=== PATIENT | female | born 1960 | race Caucasian/White ===

== ENCOUNTER 2023-10-06 14:11 | Outpatient (OUT) | payer OTHER, SELFPAY ==
--- NOTE | 2023-10-06 14:15 | MM_ITS ---
Patient Name: SILVIO THORNTON MR#: [id number] : 1960 Exam Date: 10/06/2023 Ordering Doctor: DR CARLOS ELI M.D. RADIOLOGY REPORT PROCEDURE: MM TOMOSYNTHESIS SCREENING BI COMPARISON: None. INDICATIONS: Screening Calculator Name NCI Breast Cancer Risk Assessment Tool 5 Year Breast Cancer Risk Not Reported. Lifetime Breast Cancer Risk Not Reported. Personal Breast Cancer No Personal Ovarian Cancer No Treatments None Family Cancers None LOCATION: [facility] BREAST COMPOSITION: Heterogeneously dense,which may obscure small masses. FINDINGS: DIAGNOSTIC CATEGORY 1--NEGATIVE. RIGHT BREAST: No significant suspicious finding. LEFT BREAST: No significant suspicious finding. RECOMMENDATIONS: ROUTINE MAMMOGRAM AND CLINICAL EVALUATION IN 12 MONTHS. PLEASE NOTE: A NORMAL MAMMOGRAM DOES NOT EXCLUDE THE POSSIBILITY OF BREAST CANCER. A CLINICALLY SUSPICIOUS PALPABLE LUMP SHOULD BE BIOPSIED. Dictated by: Roddy Villalpando M.D. on 10/25/2023 at 11:50 Approved by: Roddy Villalpando M.D. on 10/25/2023 at 11:55
== END 2023-10-06 14:12 | disposition home or self-care (01) ==
LOC: MAMMO 14:12
PROVIDERS: PCP Internal Medicine; Visit Provider Internal Medicine
DX: Z12.31 Encounter for screening mammogram for malignant neoplasm of breast (principal)
CPT/HCPCS: 77063; 77067

== ENCOUNTER 2023-11-10 12:45 | Outpatient (OUT) | payer OTHER, SELFPAY ==
--- NOTE | 2023-11-10 13:06 | XR_ITS ---
[address] [address] Patient Name: SILVIO THORNTON MRN: [id number] date: 1960 Sex: F Assigned Patient Location: [facility] Current Patient Location: Accession/Order Number: [id number] Exam Date: 11/10/2023 12:55 Report Date: 11/11/2023 07:44 At the request of: CARLOS ELI Procedure: XR DEXA axial skeleton EXAMINATION: XR DEXA axial skeleton, 11/10/2023 12:55 PM EST HISTORY: Primary Ovarian Failure E28.39 COMPARISON: None. TECHNIQUE: Dual-energy X-ray absorptiometry (DEXA) bone density study performed for the axial skeleton. HISTORY: Primary Ovarian Failure E28.39 FINDINGS: Bone mineral density of the left forearm radius measures 0.717 g/sq cm. T score 0. WHO classification: Normal. The lowest bone mineral densities the right femoral neck measuring 0.843 g/sq cm. T score -1.4. WHO classification: Osteopenia XR/XR DEXA axial skeleton IMPRESSION: Osteopenia. Moderate fracture risk Electronically authenticated by: MORALES BHATIA Date: 11/11/2023 07:44
== END 2023-11-10 12:46 | disposition home or self-care (01) ==
LOC: RAD 12:45
PROVIDERS: PCP Internal Medicine; Visit Provider Internal Medicine
DX: E28.39 Other primary ovarian failure (principal); M85.80 Other specified disorders of bone density and structure, unspecified site
CPT/HCPCS: 77080

== ENCOUNTER 2023-11-17 09:44 | Emergency (ER) | payer OTHER, SELFPAY ==
[2023-11-17] VITALS (32 sets, daily range): BP systolic 140–179; BP diastolic 59–89; PULSE 80–102; RESP 9–21; TEMP 36.3; O2SAT 94–100; BMI 29.9
--- NOTE | 2023-11-17 10:10 | ECG_ITS ---
[facility] Test Date: 2023-11-17 Pat Name: SILVIO THORNOTN Department: Room: - Gender: Female [employer] Att[employer]: : 1960 Requested By: CARLOS ELI Order Number: [id number] Reading MD: ANTHONY GOODE Measurements Intervals [place] Rate: 99 P: 54 IA: 152 QRS: 40 QRSD: 82 T: 256 QT: 368 QTc: 424 Interpretive Statements 1100 Sinus rhythm [address] depression 4364 Twave abnormality, possible inferolateral ischemia 9150 abnormal ECG No previous ECG available for comparison Electronically Signed On 11-18-2023 7:07:22 EST by ANTHONY GOODE
--- NOTE | 2023-11-17 10:11 | ED_ITS ---
HPI - General Adult General Chief complaint: Nausea/Vomiting/Diarrhea Stated complaint: HIGH BLOOD SUGAR Time Seen by Provider: 11/17/23 10:07 Source: patient Mode of arrival: walk-in Limitations: no limitations History of Present Illness HPI narrative: 63-year-old female presents for nausea and vomiting and diarrhea for four days. Her blood sugar is high at home as well. No fever. She has been able to take her medications like she normally would. No hematemesis or complaints of abdominal pain now. Related Data Home Medications Medication Instructions Recorded Confirmed amlodipine 5 mg tablet 5 mg PO DAILY 11/17/23 11/17/23 citalopram 20 mg tablet 40 mg PO DAILY 11/17/23 11/17/23 dapagliflozin propanediol 10 mg 10 mg PO DAILY 11/17/23 11/17/23 tablet (Farxiga) famotidine 20 mg tablet 20 mg PO DAILY 11/17/23 11/17/23 gabapentin 100 mg capsule 100 mg PO DAILY 11/17/23 11/17/23 glimepiride 4 mg tablet 4 mg PO BID 11/17/23 11/17/23 pravastatin 20 mg tablet 20 mg PO DAILY 11/17/23 11/17/23 sitagliptin phosphate 100 mg 100 mg PO DAILY 11/17/23 11/17/23 tablet (Januvia) valsartan 160 mg tablet 320 mg PO DAILY 11/17/23 11/17/23 Allergies Allergy/AdvReac Type Severity Reaction Status Date / Time acetaminophen [From Percocet] AdvReac Intermediate Verified 11/17/23 09:53 oxycodone [From Percocet] AdvReac Intermediate Verified 11/17/23 09:53 Review of Systems ROS Narrative A ten point review of systems is negative except as noted above. PFSH PFSH Social History Smoking status: Former smoker Exam Narrative Exam Narrative: Nurses note and vital signs reviewed and patient is not hypoxic. General: The patient appears uncomfortable. Skin: Warm, dry, no pallor noted. There is no rash noted. Head: Normocephalic, atraumatic Eye: Normal conjunctiva, no drainage Ears, Nose, Mouth, and Throat: oral mucosa is dry. Nares patent. Cardiovascular: Regular Rate and Rhythm Respiratory: Patient is in no distress, no accessory muscle use, lungs are clear to auscultation, no wheezing, rales or rhonchi Back: non-tender GI: soft and nontender Musculoskeletal: The patient has no evidence of calf tenderness, no pitting edema, symmetrical pulses noted bilaterally Neurological: A&O, normal speech Psychiatric: Cooperative Constitutional Vital Signs, click to edit/add: Last Vital Signs Temp 97.4 F L 11/17/23 09:53 Pulse 102 H 11/17/23 09:53 Resp 18 11/17/23 09:53 BP 152/66 H 11/17/23 09:53 Pulse Ox 99 11/17/23 09:53 Course Vital Signs Vital signs: Vital Signs Temperature 97.4 F L 11/17/23 09:53 Pulse Rate 102 H 11/17/23 09:53 Respiratory Rate 18 11/17/23 09:53 Blood Pressure 152/66 H 11/17/23 09:53 Pulse Oximetry 99 11/17/23 09:53 Temperature 97.4 F L 11/17/23 09:53 Pulse Rate 102 H 11/17/23 09:53 Respiratory Rate 18 11/17/23 09:53 Blood Pressure 152/66 H 11/17/23 09:53 Pulse Oximetry 99 11/17/23 09:53 Medical Decision Making MDM Narrative Medical decision making narrative: troponin came back at 1984 and patient has NSTEMI. aspirin and IV heparin are ordered and I've spoken to the director multimedia at [facility] and the patient will be transferred there. She is agreeable and stable for transfer. Differential Diagnosis Differential Diagnosis: gastroenteritis, hyperglycemia, DKA, myocardial infarction Lab Data Lab results reviewed: Yes I reviewed the patient's lab results Labs: Lab Results 11/17/23 11/17/23 11/17/23 Range/Units 10:10 10:40 10:43 WBC 16.1 H (4.0-11.0) 10^3/uL RBC 5.70 H (4.20-5.40) 10^6/uL Hgb 16.6 H (12.0-16.0) g/dL Hct 48.6 H (36.0-48.0) % MCV 85.3 (81.0-99.0) fL MCH 29.1 (26.7-34.0) pg MCHC 34.2 (29.9-35.2) g/dL RDW 12.2 (11.0-15.0) % Plt Count 349 (150-450) 10^3/uL MPV 11.0 (9.5-13.5) fL Neut % (Auto) 85.0 H (43.0-75.0) % Lymph % (Auto) 9.0 L (20.5-60.0) % [place] % (Auto) 5.4 (1.7-12.0) % Eos % (Auto) 0.0 L (0.9-7.0) % Baso % (Auto) 0.2 (0.2-2.0) % Neut # (Auto) 13.7 H (1.4-6.5) 10^3/uL Lymph # (Auto) 1.4 (1.2-3.8) 10^3/uL [place] # (Auto) 0.9 H (0.3-0.8) 10^3/uL Eos # (Auto) 0.0 (0.0-0.7) 10^3/uL Baso # (Auto) 0.0 (0.0-0.1) 10^3/uL Abs Immat Gran (auto) 0.07 H (0.00-0.03) 10^3/uL Imm/Tot Granulo (auto) 0.4 (0.0-0.5) % Sodium 134 L (136-145) mmol/L Potassium 3.7 (3.5-5.1) mmol/L Chloride 98 (98-107) mmol/L Carbon Dioxide 18.7 L (21.0-32.0) mmol/L Anion Gap 21.0 BUN 35.0 H (7.0-18.0) mg/dL Creatinine 0.96 (0.55-1.02) mg/dL Est GFR ( Amer) >60 (>=60) Est GFR (Non-Af Amer) 58 L (>=60) BUN/Creatinine Ratio 36.5 Glucose 302 H (74-106) mg/dL Calcium 9.4 (8.5-10.1) mg/dL Troponin I High Sens 1985.8 H* (4.0-51.3) pg/mL Urine Color Lt. yellow (YELLOW) Urine Clarity Clear (CLEAR) Urine pH 6.0 (5.0-9.0) Ur Specific [place] 1.015 (1.005-1.025) Urine Protein Negative (NEG/TRACE) mg/dL Urine Glucose (UA) >=1000 A (NEGATIVE) mg/dL Urine Ketones >=80 A (NEGATIVE) mg/dL Urine Occult Blood Negative (NEGATIVE) Urine Nitrite Negative (NEGATIVE) Urine Bilirubin Negative (NEGATIVE) Urine Urobilinogen 0.2 (0.2-1.0) EU/dL Ur Leukocyte Esterase Negative (NEGATIVE) Urine RBC None seen (0-2) #/HPF Urine WBC None seen (NONE SEEN) #/HPF Ur Squamous Epith Cells Few A (NONE/RARE) #/LPF Urine Crystals None seen (None Seen) #/HPF Urine Bacteria None seen (NONE SEEN) #/HPF Urine Casts None seen (NONE SEEN) #/LPF Urine Mucus None seen (NONE SEEN) Acetone, Qual Negative (NEGATIVE) ECG Data Attestation: I personally reviewed and interpreted this ECG as follows: (EKG on my interpretation shows sinus rhythm with flipped T waves laterally) Critical Care Time Critical Care Time Critical Care Time: Yes Total Critical Care Time: 35 Attestation: Due to the high probability of sudden and clinically significant deterioration in the patient's condition he/she required the highest level of my preparedness to intervene urgently I provided critical care time including documentation time, medication orders and management, reevaluation, vital sign assessment, ordering and reviewing of lab tests, ordering and reviewing of x-ray studies, and admission orders. Aggregate critical care time is 35 minutes including only time during which I was engaged in work directly related to his/her care and did not include time spent treating other patients simultaneously. Discharge Plan Discharge Chief Complaint: Nausea/Vomiting/Diarrhea Clinical Impression: Non-ST elevation [place] (NSTEMI) Patient Disposition: [facility] Time of Disposition Decision: 12:15 Discharge Location: [facility] Condition: Fair Mode of Transportation: EMS
[2023-11-17] MEDS: 0.9 % SODIUM CHLORIDE 1,000 ML 1000 ML IV (10:17)
[2023-11-17] MEDS: ONDANSETRON PF 4 MG/2 ML VIAL IV (10:18)
[2023-11-17 10:24] LABS: Basophils Percent Auto 0.2 % (0.2-2.0); Hematocrit 48.6 % (36.0-48.0); Hemoglobin 16.6 g/dL (12.0-16.0); Immature Granulocytes Abs Auto 0.07 10^3/uL (0.00-0.03); Immature Granulocytes Pct Auto 0.4 % (0.0-0.5); Lymphocytes Absolute Auto 1.4 10^3/uL (1.2-3.8); Mean Corpuscular HGB Conc 34.2 g/dL (29.9-35.2); Mean Corpuscular Hemoglobin 29.1 pg (26.7-34.0); Mean Corpuscular Volume 85.3 fL (81.0-99.0); Monocytes Absolute Auto 0.9 10^3/uL (0.3-0.8); Monocytes Percent Auto 5.4 % (1.7-12.0); Neutrophils Absolute Auto 13.7 10^3/uL (1.4-6.5); Platelet Count 349 10^3/uL (150-450); Red Cell Distribution Width 12.2 % (11.0-15.0); White Blood Count 16.1 10^3/uL (4.0-11.0)
--- OUTSIDE RECORDS SUMMARY | 2023-11-17 10:42 | XMS_ITS | CCD ---
Author Name Unknown Address [address] [facility] [address] [place] [id number] Organization [facility] Care Team Providers Care Pay Clerk Name Role Phone REQUEST, DR NONE LISTED Attending Unavaila ble REQUEST, DR LUNDY LISTED Admitting Unavaila ble MISC, DR SANDOVAL Consulting Unavailable MISC, DR SANDOVAL Primary Care Unavailable ROSARIO LARIOS Attending Unavailable CARLOS ELI Attending Unavailable Allergies Allergy Classification Reported Allergen(s) Allergy Type Date of Onset Reaction(s) Facility (1 source) Acetaminophen / oxyCODONE Drug Allergy 02-25-2021 [facility] Repository Problems Problem Classification Problem Date Documented Date Episodic/Chronic Diabetes mellitus without complication (4 sources) Type 2 diabetes mellitus without complications; Translations: [TYPE 2 DM WITHOUT COMPLICATIONS] Onset: 2 Chronic Disorders of lipid metabolism (1 source) Pure hypercholesterolemia, unspecified; Translations: [PURE HYPERCHOLESTEROLEMIA UNSPEC] Onset: 2 Chronic Essential hypertension (1 source) Essential (primary) hypertension; Translations: [ESSENTIAL PRIMARY HYPERTENSION] Onset: 2 Chronic Results Test Name Value Interpretation Reference Range Facil ity CBC AUTO DIFFon 08-27-2022 BASO # 0.1 103/ul Normal 0.0-0.1 [facility] Comment on above: Performed By: #### C BC #### [facility] [address] [address] [address] Twin Bernal Basophils/100 WBC (Bld) 1.0 % Normal 0.2-2.0 [facility] Comment on above: Performed By: #### C BC #### [facility] [address] [place], [place] [address] Dr. Twin Bernal EO # 0.5 103/ul Normal 0.0-0.7 [facility] Comment on above: Performed By: #### C BC #### [facility] [address] [place] [address] Dr. Twin Beranl Eosinophils/100 WBC (Bld) 7.7 % Critically high 0.9-7.0 [facility] Comment on above: Performed By: #### C BC #### [facility] [address] [place] [address] Dr. Twin Bernal Erythrocyte distribution width (RBC) [Ratio] 12.3 % Normal 11.0-15.0 [facility] Comment on above: Performed By: #### C BC #### [facility] [address] [place] [address] Dr. Twin Bernal Hematocrit (Bld) [Volume fraction] 41.2 % Normal 36.0-48.0 [facility] Comment on above: Performed By: #### C BC #### [facility] [address] [place] [address] Dr. Twin Bernal Hemoglobin (Bld) [Mass/Vol] 13.9 g/dL Normal 12.0-16.0 [facility] Comment on above: Performed By: #### C BC #### [facility] [address] [place] [address] Dr. Twin Bernal IG # 0.02 10e3/ul Normal 0.00-0.03 [facility] Comment on above: Performed By: #### C BC #### [facility] [address] [place] [address] Dr. Twin Bernal IG % 0.3 % Normal 0.0-0.5 [facility] Comment on above: Performed By: #### C BC #### [facility] [address] [place] [address] Dr. Twin Bernal LYMPH # 1.9 103/ul Normal 1.2-3.8 [facility] Comment on above: Performed By: #### C BC #### [facility] [address] [place] [address] Dr. Twin Bernal Lymphocytes/100 WBC (Bld) 31.9 % Normal 20.5-60.0 [facility] Comment on above: Performed By: #### C BC #### [facility] [address] [place] [address] Dr. Twin Bernal MANUAL DIFF REQ NO Normal [facility] Comment on above: Performed By: #### C BC #### [facility] [address] [place] [address] Dr. Twin Bernal MCH (RBC) [Entitic mass] 29.3 pg Normal 26.7-34.0 [facility] Comment on above: Performed By: #### C BC #### [facility] [address] [place] [address] Dr. Twin Bernal MCHC (RBC) [Mass/Vol] 33.7 g/dL Normal 29.9-35.2 [facility] Comment on above: Performed By: #### C BC #### [facility] [address] [place] [address] Dr. Twin Bernal MCV (RBC) [Entitic vol] 86.9 fL Normal 81.0-99.0 [facility] Comment on above: Performed By: #### C BC #### [facility] [address] [place] [address] Dr. Twin Bernal MONO # 0.4 103/ul Normal 0.3-0.8 [facility] Comment on above: Performed By: #### C BC #### [facility] [address] [place] [address] Dr. Twin Bernal Monocytes/100 WBC (Bld) 6.0 % Normal 1.7-12.0 [facility] Comment on above: Performed By: #### C BC #### [facility] [address] [place] [address] Dr. Twin Bernal NEUT # 3.1 103/ul Normal 1.4-6.5 [facility] Comment on above: Performed By: #### C BC #### [facility] [address] [place] [address] Dr. Twin Bernal Neutrophils/100 WBC (Bld) 53.1 % Normal 43.0-75.0 [facility] Comment on above: Performed By: #### C BC #### [facility] [address] [place] [address] Dr. Twin Bernal Platelet mean volume (Bld) [Entitic vol] 9.5 fL Normal 9.5-13.5 [facility] Comment on above: Performed By: #### C BC #### [facility] [address] [place] [address] Dr. Twin Bernal PLT 290 103/ul Normal 150-450 [facility] Comment on above: Performed By: #### C BC #### [facility] [address] [address] [address] Twin Bernal RBC 4.74 106/ul Normal 4.20-5.40 [facility] Comment on above: Performed By: #### C BC #### [facility] [address] [place] [address] Dr. Twin Bernal WBC 5.8 103/ul Normal 4.0-11.0 [facility] Comment on above: Performed By: #### C BC #### [facility] [address] [place] [address] Dr. Twin Bernal FREE T4on 08-27-2022 Free T4 [Mass/Vol] 0.84 ng/dL Normal 0.76-1.46 [facility] Comment on above: Performed By: #### F T4 #### [facility] [address] [place] [address] Dr. Twin Bernal LIPID PROFILEon 08-27-2022 CHOL-HDL RATIO NORM SEE BELOW Normal [facility] Comment on above: Result Comment: 3.3 - 4.4 LOW RISK 4.4 - 7.1 AVERAGE RISK 7.1 - 11.0 MODERATE RISK >11.0 HIGH RISK Performed By: #### L IPID, CMP, TSH #### [facility] [address] [place] [address] Dr. Twin Bernal Cholesterol [Mass/Vol] 216 mg/dL Critically high <=200 [facility] Comment on above: Performed By: #### L IPID, CMP, TSH #### [facility] [address] [place] [address] Dr. Twin Bernal Cholesterol in HDL [Mass/Vol] 79 mg/dL Critically high 40-60 [facility] Comment on above: Performed By: #### L IPID, CMP, TSH #### [facility] [address] [address] [address] Tiwn Bernal Cholesterol in LDL [Mass/Vol] 117.6 mg/dL Normal [facility] Comment on above: Performed By: #### L IPID, CMP, TSH #### [facility] [address] [address] [address] Twin Bernal Cholesterol.total/ Cholesterol in HDL [Mass ratio] 2.7 {ratio} Normal [facility] Comment on above: Performed By: #### L IPID, CMP, TSH #### [facility] [address] [address] [address] Twin Bernal HDL NORMAL > or = 60 mg/dl - LO W CARDIOVASCULAR RISK <40 mg/dl - HIGH CARDIOVASCULAR RISK Normal [facility] Comment on above: Performed By: #### L IPID, CMP, TSH #### [facility] [address] [address] [address] Twin Bernal LDL CALC NORMAL SEE BELOW Normal [facility] Comment on above: Result Comment: <100 mg/dl OPTIMAL 100 - 129 mg/dl NEAR OR ABOVE OPTIMAL 130 - 159 mg/dl BORDERLINE HIGH 160 - 189 mg/dl HIGH >190 mg/dl VERY HIGH Performed By: #### L IPID, CMP, TSH #### [facility] [address] [address] [address] Twin Bernal Triglyceride [Mass/Vol] 97 mg/dL Normal <=150 [facility] Comment on above: Performed By: #### L IPID, CMP, TSH #### [facility] [address] [address] [address] Twin Bernal VLDL CALC 19.4 mg/dL Normal [facility] Comment on above: Performed By: #### L IPID, CMP, TSH #### [facility] [address] [address] [address] Twin Bernal MICROALB CREAT RATIO RANDOMo n 08-27-2022 mALB 1.0 mg/L Normal <=30.0 [facility] Comment on above: Performed By: #### M CRR #### [facility] [address] [address] [address] Twin LAY CR RATIO 6.8 mg/g Normal 0.0-29.9 [facility] Comment on above: Performed By: #### M CRR #### [facility] [address] [place] [address] Dr. Twin VILLALTAB CR RATIO RANGE SEE BELOW Normal [facility] Comment on above: Result Comment: NO M ICROALBUMINURIA 0-29 MG/G CLINICAL MICROALBUMINURIA 30-300 MG/G MACROALBUMINURIA >300 MG/G Performed By: #### M CRR #### [facility] [address] [place] [address] Dr. Twin Bernal URINE CREAT 148.12 mg/dL Normal 20.00-300.[address] [facility] Comment on above: Performed By: #### M CRR #### [facility] [address] [place] [address] Dr. Twin Bernal PROF 14(COMP METB)on 022 Albumin [Mass/Vol] 3.5 g/dL Normal 3.4-5.0 [facility] Comment on above: Performed By: #### L IPID, CMP, TSH #### [facility] [address] [place] [address] Dr. Twin Bernal Albumin/Globulin [Mass ratio] 1.0 {ratio} Normal [facility] Comment on above: Performed By: #### L IPID, CMP, TSH #### [facility] [address] [place] [address] Dr. Twin Bernal ALP [Catalytic activity/Vol] 92 U/L Normal 46-116 [facility] Comment on above: Performed By: #### L IPID, CMP, TSH #### [facility] [address] [place] [address] Dr. Twin Bernal ALT [Catalytic activity/Vol] 23 U/L Normal 14-59 [facility] Comment on above: Performed By: #### L IPID, CMP, TSH #### [facility] [address] [address] [address] Twin Bernal Anion gap [Moles/Vol] 9.2 mmol/L Normal [facility] Comment on above: Performed By: #### L IPID, CMP, TSH #### [facility] [address] [place] [address] Dr. Twin Bernal AST [Catalytic activity/Vol] 9 U/L Critically low 15-37 [facility] Comment on above: Performed By: #### L IPID, CMP, TSH #### [facility] [address] [place] [address] Dr. Twin Bernal Bilirubin [Mass/Vol] 0.3 mg/dL Normal 0.2-1.0 [facility] Comment on above: Performed By: #### L IPID, CMP, TSH #### [facility] [address] [place] [address] Dr. Twin Bernal Calcium [Mass/Vol] 9.0 mg/dL Normal 8.5-10.1 [facility] Comment on above: Performed By: #### L IPID, CMP, TSH #### [facility] [address] [place] [address] Dr. Twin Bernal Chloride [Moles/Vol] 100 mmol/L Normal 98-107 [facility] Comment on above: Performed By: #### L IPID, CMP, TSH #### [facility] [address] [place] [address] Dr. Twin Bernal CO2 [Moles/Vol] 30.9 mmol/L Normal 21.0-32.0 [facility] Comment on above: Performed By: #### L IPID, CMP, TSH #### [facility] [address] [place] [address] Dr. Twin Bernal Creatinine [Mass/Vol] 0.66 mg/dL Normal 0.55-1.02 [facility] Comment on above: Performed By: #### L IPID, CMP, TSH #### [facility] [address] [place] [address] Dr. Twin Bernal EGFR-AF NEPALESE >60 Normal >=60 [facility] Comment on above: Performed By: #### L IPID, CMP, TSH #### [facility] [address] [address] [address] Twin Bernal EGFR-NON AF NEPALESE >60 Normal >=60 [facility] Comment on above: Performed By: #### L IPID, CMP, TSH #### [facility] [address] [address] [address] Twin Bernal Globulin (S) [Mass/Vol] 3.6 g/dL Normal [facility] Comment on above: Performed By: #### L IPID, CMP, TSH #### [facility] [address] [address] [address] Twin Bernal Glucose [Mass/Vol] 241 mg/dL Critically high 74-106 [facility] Comment on above: Performed By: #### L IPID, CMP, TSH #### [facility] [address] [place] [address] Dr. Twin Bernal Potassium [Moles/Vol] 4.1 mmol/L Normal 3.5-5.1 [facility] Comment on above: Performed By: #### L IPID, CMP, TSH #### [facility] [address] [address] [address] Twin Bernal Protein [Mass/Vol] 7.1 g/dL Normal 6.4-8.2 [facility] Comment on above: Performed By: #### L IPID, CMP, TSH #### [facility] [address] [address] [address] Twin Bernal Sodium [Moles/Vol] 136 mmol/L Normal 136-145 [facility] Comment on above: Performed By: #### L IPID, CMP, TSH #### [facility] [address] [address] [address] Twin Bernal Urea nitrogen [Mass/Vol] 19.0 mg/dL Critically high 7.0-18.0 [facility] Comment on above: Performed By: #### L IPID, CMP, TSH #### [facility] [address] [address] [address] Twin Bernal Urea nitrogen/Creatinin e [Mass ratio] 28.8 mg/mg Normal [facility] Comment on above: Performed By: #### L IPID, CMP, TSH #### [facility] [address] [place], [place] [address] Dr. Twin Bernal TSHon 08-27-2022 TSH 1.202 uIU/mL Normal 0.358-3.740 [facility] Comment on above: Performed By: #### L IPID, CMP, TSH #### [facility] [address] [place], [place] [address] Dr. Twin Bernal Encounters Encounter Date Encounter Type Care Provider Facility Start: 11-07-2023 End: 11-07-2023 ambulatory CARLOS ELI Not Available Start: 10-25-2023 End: 10-25-2023 ambulatory ROSARIO LARIOS Not Available Start: 08-27-2022 End: 08-28-[address] NONE LISTED REQUEST Facility: Payers Date Payer Category Payer Unknown [id number] 1961 Medicare [id number] 1960 Unknown [id number] 1960 Unknown [id number] 1960 Unknown [id number] Summary Purpose Family History No Family History Records FoundNo Family History Records Found Advance Directives No Advanced Directives Records FoundNo Advanced Directives Records Found Additional Source Comments INFORMATION SOURCE (unrecogn ized section and content) DATE CREATED AUTHOR 08/31/[address] [facility] DATE CREATED AUTHOR AUTHOR'S ORGANIZ ATION 11/09/2023 [facility] EPIC FOR RECORDS PERTAINING TO PATIENTS WHO ARE OR HAVE BEEN ENROLLED IN A CHEMICAL DEPENDENCY/SUBSTANCEABUSE PROGRAM, SOME INFORMATION MAY BE OMITTED. This clinical summary was aggregated from multiple sources. Caution should be exercised in using it in the provision of clinical care. This summary normalizes information from multiple sources, and as a consequence, information in this document may materially change the coding, format and clinical context of patient data. In addition, data may be omitted in some cases. CLINICAL DECISIONS SHOULD BE BASED ON THE PRIMARY CLINICAL RECORDS. [facility] [employer] [facility]. provides no warranty or guarantee of the accuracy or completeness of information in this document.
[2023-11-17 10:57] LABS: Acetone NEGATIVE (NEGATIVE)
[2023-11-17 11:06] LABS: BUN Creatinine Ratio 36.5; Calcium 9.4 mg/dL (8.5-10.1); Carbon Dioxide 18.7 mmol/L (21.0-32.0); Chloride 98 mmol/L (98-107); Estimated GFR (African America >60 (>=60); Estimated GFR (Non-African Ame 58 (>=60); Glucose 302 mg/dL (74-106); Potassium 3.7 mmol/L (3.5-5.1); Sodium 134 mmol/L (136-145)
[2023-11-17 11:21] LABS: Bilirubin Urine NEGATIVE (NEGATIVE); Blood Urine NEGATIVE (NEGATIVE); Clarity Urine CLEAR (CLEAR); Color Urine LT. YELLOW (YELLOW); Glucose Urine UA >=1000 mg/dL (NEGATIVE); Ketones Urine >=80 mg/dL (NEGATIVE); Leukocyte Esterase Urine NEGATIVE (NEGATIVE); Nitrite Urine NEGATIVE (NEGATIVE); Protein Urine NEGATIVE (NEG/TRACE); Specific Gravity Urine 1.015 (1.005-1.025); Urobilinogen Urine 0.2 EU/dL (0.2-1.0)
[2023-11-17 11:27] LABS: Bacteria Urine NONE SEEN #/HPF (NONE SEEN); Cast Seen? NONE SEEN #/LPF (NONE SEEN); Crystals Seen? None Seen #/HPF (None Seen); Mucus Urine NONE SEEN (NONE SEEN); RBC Urine NONE SEEN #/HPF (0-2); Squamous Epithelial Cell Urine FEW #/LPF (NONE/RARE); WBC Urine NONE SEEN #/HPF (NONE SEEN)
--- NOTE | 2023-11-17 11:27 | XR_ITS ---
The [address] [address] Patient Name: SILVIO THORNTON MRN: [id number] date: 1960 Sex: F Assigned Patient Location: ER Current Patient Location: ED.MAIN Accession/Order Number: [id number] Exam Date: 11/17/2023 11:48 Report Date: 11/17/2023 12:22 At the request of: JEFFREY MOLINA Procedure: XR chest 1V EXAMINATION: XR chest 1V HISTORY: MT , nausea and vomiting COMPARISON: No relevant comparison available. FINDINGS: LUNGS: No significant pulmonary parenchymal abnormalities. VASCULATURE: No increased pulmonary vasculature. PLEURA: No pneumothorax, effusion, or pleural thickening. CARDIAC: No cardiomegaly or cardiac silhouette abnormality. MEDIASTINUM: No visible mass or adenopathy. BONES: No fracture or visible bone lesion. OTHER: Negative. XR/XR chest 1V IMPRESSION: 1. No acute cardiopulmonary process. Electronically authenticated by: DOUG ENGLISH Date: 11/17/2023 12:22
[2023-11-17] MEDS: 0.9 % SODIUM CHLORIDE 1,000 ML 100 ML IV (11:32)
[2023-11-17] MEDS: HEPARIN SODIUM,PORCINE/D5W 25,000 UNIT/500 ML IV.SOLN 18.96 UNIT IV (11:34)
[2023-11-17] MEDS: HEPARIN SODIUM (PORCINE) 5,000 UNIT/ML VIAL 4000 UNIT IV (11:34)
[2023-11-17] MEDS: ASPIRIN 81 MG TAB.CHEW 324 MG PO ×2 (11:53→12:11)
--- NOTE | 2023-11-17 12:27 | ED_ITS ---
HPI - General Adult General Chief complaint: Nausea/Vomiting/Diarrhea Stated complaint: HIGH BLOOD SUGAR Time Seen by Provider: 11/17/23 10:07 Source: patient Mode of arrival: walk-in Limitations: no limitations History of Present Illness HPI narrative: 63-year-old female presents for diarrhea and not feeling well. She's made several trips to the bathroom for diarrhea. She states anytime she tries to eat or drink anything she has diarrhea. No vomiting. No chest pain or shortness of breath or cough. She's not complain to me of abdominal pain. This started within the last day. Related Data Home Medications Medication Instructions Recorded Confirmed amlodipine 5 mg tablet 5 mg PO DAILY 11/17/23 11/17/23 citalopram 20 mg tablet 40 mg PO DAILY 11/17/23 11/17/23 dapagliflozin propanediol 10 mg 10 mg PO DAILY 11/17/23 11/17/23 tablet (Farxiga) famotidine 20 mg tablet 20 mg PO DAILY 11/17/23 11/17/23 gabapentin 100 mg capsule 100 mg PO DAILY 11/17/23 11/17/23 glimepiride 4 mg tablet 4 mg PO BID 11/17/23 11/17/23 insulin glargine 100 unit/mL (3 60 unit subcut QAM 11/17/23 11/17/23 mL) subcutaneous pen (Basaglar Tempo Pen (U-100) Insulin) pravastatin 20 mg tablet 20 mg PO DAILY 11/17/23 11/17/23 sitagliptin phosphate 100 mg 100 mg PO DAILY 11/17/23 11/17/23 tablet (Januvia) valsartan 160 mg tablet 320 mg PO DAILY 11/17/23 11/17/23 Allergies Allergy/AdvReac Type Severity Reaction Status Date / Time acetaminophen [From Percocet] AdvReac Intermediate Verified 11/17/23 09:53 oxycodone [From Percocet] AdvReac Intermediate Verified 11/17/23 09:53 Review of Systems ROS Narrative A ten point review of systems is negative except as noted above. PFSH PFSH Social History Smoking status: Former smoker Exam Narrative Exam Narrative: Nurses note and vital signs reviewed and patient is not hypoxic. General: The patient appears uncomfortable and is in no acute distress Skin: Warm, dry, no pallor noted. There is no rash noted. Head: Normocephalic, atraumatic Eye: Normal conjunctiva, no drainage Ears, Nose, Mouth, and Throat: oral mucosa is somewhat dry. Nares patent. Cardiovascular: irregularly irregular Respiratory: Patient is in no distress, no accessory muscle use, lungs are clear to auscultation, no wheezing, rales or rhonchi Back: non-tender GI: soft and nontender Musculoskeletal: The patient has no evidence of calf tenderness, no pitting edema, symmetrical pulses noted bilaterally Neurological: A&O, normal speech Psychiatric: Cooperative Constitutional Vital Signs, click to edit/add: Last Vital Signs Temp 97.4 F L 11/17/23 09:53 Pulse 102 H 11/17/23 09:53 Resp 18 11/17/23 09:53 BP 152/66 H 11/17/23 09:53 Pulse Ox 99 11/17/23 09:53 Course Vital Signs Vital signs: Vital Signs Temperature 97.4 F L 11/17/23 09:53 Pulse Rate 102 H 11/17/23 09:53 Respiratory Rate 18 11/17/23 09:53 Blood Pressure 152/66 H 11/17/23 09:53 Pulse Oximetry 99 11/17/23 09:53 Temperature 97.4 F L 11/17/23 09:53 Pulse Rate 102 H 11/17/23 09:53 Respiratory Rate 18 11/17/23 09:53 Blood Pressure 152/66 H 11/17/23 09:53 Pulse Oximetry 99 11/17/23 09:53 Medical Decision Making Lab Data Labs: Lab Results 11/17/23 11/17/23 11/17/23 Range/Units 10:10 10:40 10:43 WBC 16.1 H (4.0-11.0) 10^3/uL RBC 5.70 H (4.20-5.40) 10^6/uL Hgb 16.6 H (12.0-16.0) g/dL Hct 48.6 H (36.0-48.0) % MCV 85.3 (81.0-99.0) fL MCH 29.1 (26.7-34.0) pg MCHC 34.2 (29.9-35.2) g/dL RDW 12.2 (11.0-15.0) % Plt Count 349 (150-450) 10^3/uL MPV 11.0 (9.5-13.5) fL Neut % (Auto) 85.0 H (43.0-75.0) % Lymph % (Auto) 9.0 L (20.5-60.0) % Miller % (Auto) 5.4 (1.7-12.0) % Eos % (Auto) 0.0 L (0.9-7.0) % Baso % (Auto) 0.2 (0.2-2.0) % Neut # (Auto) 13.7 H (1.4-6.5) 10^3/uL Lymph # (Auto) 1.4 (1.2-3.8) 10^3/uL Miller # (Auto) 0.9 H (0.3-0.8) 10^3/uL Eos # (Auto) 0.0 (0.0-0.7) 10^3/uL Baso # (Auto) 0.0 (0.0-0.1) 10^3/uL Abs Immat Gran (auto) 0.07 H (0.00-0.03) 10^3/uL Imm/Tot Granulo (auto) 0.4 (0.0-0.5) % Sodium 134 L (136-145) mmol/L Potassium 3.7 (3.5-5.1) mmol/L Chloride 98 (98-107) mmol/L Carbon Dioxide 18.7 L (21.0-32.0) mmol/L Anion Gap 21.0 BUN 35.0 H (7.0-18.0) mg/dL Creatinine 0.96 (0.55-1.02) mg/dL Est GFR ( Amer) >60 (>=60) Est GFR (Non-Af Amer) 58 L (>=60) BUN/Creatinine Ratio 36.5 Glucose 302 H (74-106) mg/dL Calcium 9.4 (8.5-10.1) mg/dL Troponin I High Sens 1985.8 H* (4.0-51.3) pg/mL Urine Color Lt. yellow (YELLOW) Urine Clarity Clear (CLEAR) Urine pH 6.0 (5.0-9.0) Ur Specific [place] 1.015 (1.005-1.025) Urine Protein Negative (NEG/TRACE) mg/dL Urine Glucose (UA) >=1000 A (NEGATIVE) mg/dL Urine Ketones >=80 A (NEGATIVE) mg/dL Urine Occult Blood Negative (NEGATIVE) Urine Nitrite Negative (NEGATIVE) Urine Bilirubin Negative (NEGATIVE) Urine Urobilinogen 0.2 (0.2-1.0) EU/dL Ur Leukocyte Esterase Negative (NEGATIVE) Urine RBC None seen (0-2) #/HPF Urine WBC None seen (NONE SEEN) #/HPF Ur Squamous Epith Cells Few A (NONE/RARE) #/LPF Urine Crystals None seen (None Seen) #/HPF Urine Bacteria None seen (NONE SEEN) #/HPF Urine Casts None seen (NONE SEEN) #/LPF Urine Mucus None seen (NONE SEEN) Acetone, Qual Negative (NEGATIVE) Discharge Plan Discharge Chief Complaint: Nausea/Vomiting/Diarrhea Clinical Impression: Non-ST elevation SD (NSTEMI) Patient Disposition: [facility] Time of Disposition Decision: 12:15 Discharge Location: [facility] Condition: Fair Mode of Transportation: EMS
[2023-11-17 15:30] LABS: Troponin I High Sensitivity 1471.2 pg/mL (4.0-51.3)
== END 2023-11-17 15:39 | disposition short-term general hospital (02) ==
PROVIDERS: Emergency Provider Emergency Medicine; PCP Internal Medicine
DX: I21.4 Non-ST elevation (NSTEMI) myocardial infarction (principal); Z79.84 Long term (current) use of oral hypoglycemic drugs; Z87.891 Personal history of nicotine dependence
CPT/HCPCS: 36415; 71045; 80048; 81001; 82009; 84484; 85025; 87045; 87493; 93005; 96374; 96375; 99285

== ENCOUNTER 2024-01-03 10:59 | Outpatient (OUT) | payer OTHER, SELFPAY ==
--- OUTSIDE RECORDS SUMMARY | 2024-01-03 11:19 | XMS_ITS | CCD ---
Author Name Unknown Address [address] [place] [address] Organization [facility] Care Team Providers Care Director Of Laboratory Operations Name Role Phone REQUEST, NONE LISTED Attending Unavaila ble REQUEST, NONE LISTED Admitting Unavaila ble MISC, DR SANDOVAL Consulting Unavailable MISC, DR SANDOVAL Primary Care Unavailable HODAN Garcia Primary Care Provider [phone] DO Arjun Estrella Admit Provider [phone] DO Arjun Estrella Attending Provider [phone] GUSTAVO Mcguire Other Provider Unavailable MD Sami Walker Other Provider MD Justo Richard Other Provider MD Jennifer Lott Other Provider RANJIT GARCIA Attending Unavailable RANJIT GARCIA Attending Unavailable ROSARIO LARIOS Attending Unavailable RANJIT GARCAI Attending Unavailable Justo Richard Unavailable Ranjit Garcia Primary Care Unavailable Arjun Estrella Attending Unavailable Arjun Estrella Admitting Unavailable Lorena Mcguire Consulting Unavailable Sami Walker Consulting Unavailable Justo Richard Consulting Jennifer Cummings Consulting Unavailable Allergies Allergy Classification Reported Allergen(s) Allergy Type Date of Onset Reaction(s) Facility (1 source) Acetaminophen / oxyCODONE Drug Allergy 1 [facility] Repository (2 sources) Acetaminophen; Translations: [acetaminophen] Drug Allergy 3 [facility] (2 sources) oxyCODONE; Translations: [oxycodone] Drug Allergy 3 [facility] (1 source) Acetaminophen / oxyCODONE Drug Allergy rash [place] Other (1 source) Shellfish Drug allergy Doctor.comes [facility] Other Medications Current Medications Medication Drug Class(es) Dates Sig (Normalized) Sig (Original) ascorbic acid 1000 mg oral tablet (1 source) Vitamin C Start: 11-17-2023 take 1000 mg by mouth once daily Ascorbic Acid (Vitamin C) Active 1000 MG PO Daily November 17, 2023 12:00am aspirin 81 mg oral tablet (2 sources) Platelet Aggregation Inhibitor, Nonsteroidal Anti-inflammatory Drug Start: 11-17-2023 take 81 mg by mouth once daily Aspirin Active 81 MG PO Daily November 17, 2023 12:00am take 1 tablet by joni th every twenty-four hours Aspirin Adult Low Dose 81 MG 1 tablet Orally Once a day Active atorvastatin 40 mg oral tablet (2 sources) HMG-CoA Reductase Inhibitor Start: 11-19-2023 take 40 mg by mouth once daily in the evening Atorvastatin Active 40 MG PO Every evening November 19, 2023 12:00am chlorthalidone 25 mg oral tablet (1 source) Thiazide-like Diuretic Start: 12-26-2023 take 1 tablet by mouth every twenty-four hours Chlorthalidone 25 MG 1 tablet in the morning with food Orally daily for 30 days Nov, Active cholecalciferol 0.05 mg oral capsule (2 sources) Vitamin D Start: 11-17-2023 take 1 capsule by mouth once daily Cholecalciferol (Vitamin D3) (Vitamin D3) 50 mcg (2,000 unit) Capsule Active 50 MCG PO Daily November 17, 2023 12:00am take 1 tablet by mouth once ion y Cholecalciferol 50 MCG (2000 UT) 1 tablet Orally Once a day Active citalopram 20 mg oral tablet (2 sources) Serotonin Reuptake Inhibitor Start: 11-17-2023 take 20 mg by mouth once daily in the morning Citalopram Active 20 MG PO Every morning November 17, 2023 12:00am dapagliflozin 10 mg oral tablet (2 sources) Sodium-Glucose Cotransporter 2 Inhibitor Start: 11-17-2023 take 1 tablet by mouth once daily Dapagliflozin Propanediol (Farxiga) 10 mg Tablet Active 10 MG PO Daily November 17, 2023 12:00am famotidine 20 mg oral tablet (2 sources) Histamine-2 Receptor Antagonist Start: 12-21-2023 take 20 mg by mouth once daily Famotidine Active 20 MG PO Daily November 17, 2023 12:00am gabapentin 100 mg oral capsule (2 sources) Anti-epileptic Agent Start: 11-17-2023 take 100 mg by mouth once daily Gabapentin Active 100 MG PO Daily November 17, 2023 12:00am glimepiride 4 mg oral tablet (2 sources) Sulfonylurea Start: 11-17-2023 take 2 mg by mouth twice daily Glimepiride Active 2 MG PO Twice daily November 17, 2023 12:00am take 0.5 tablet by mouth twice d aily Glimepiride 4 MG 1/2 tab Orally twice a day Active 3 ml insulin aspart, human 100 unt/ml pen injector (2 sources) Insulin Analog Start: 11-19-2023 inject 1 dose by subcutaneous injection at bedtime Insulin Aspart U-100 (Novolog Flexpen U-100 Insulin) 100 unit/mL (3 mL) Insulin Pen Active 1 sliding scale dose SUBCUT Before meals and at bedtime November 19, 2023 12:00am NovoLOG FlexPen 100 UNIT/ML as directed Subcutaneous 3 times a day Active 3 ml insulin glargine 100 unt/ml pen injector (2 sources) Insulin Analog Start: 11-17-2023 Insulin Glargine (Basaglar Kwikpen U-100 Insulin) 100 unit/mL (3 mL) Insulin Pen Active 65 UNIT SUBCUT Daily November 17, 2023 12:00am Lactobacillus Combination No.4 (Probiotic) 3 billion cell Capsule (1 source) Start: 11-17-2023 take 3 capsules by mouth once daily Lactobacillus Combination No.4 (Probiotic) 3 billion cell Capsule Active 3000 MMU CELLS PO Daily November 17, 2023 12:00am administer with a meal loratadine 10 mg oral tablet (1 source) Start: 11-17-2023 take 10 mg by mouth once daily Loratadine Active 10 MG PO Daily November 17, 2023 12:00am Magnesium (1 source) take 1 tablet by mouth once daily Magnesium 250 MG 1 tablet with a meal Orally Once a day Active metoprolol tartrate 50 mg oral tablet (2 sources) beta-Adrenergic Ebony Start: 11-19-2023 take 50 mg by mouth twice daily Metoprolol Tartrate Active 50 MG PO Twice daily 60 November 19, 2023 12:00am SITagliptin 100 mg oral tablet (2 sources) Dipeptidyl Peptidase 4 Inhibitor Start: 11-17-2023 take 1 tablet by mouth once daily Sitagliptin Phosphate (Januvia) 100 mg Tablet Active 100 MG PO Daily November 17, 2023 12:00am valsartan 320 mg oral tablet (2 sources) Angiotensin 2 Receptor Ebony Start: 11-17-2023 take 320 mg by mouth once daily Valsartan Active 320 MG PO Daily November 17, 2023 12:00am take 1 tablet by joni th every twenty-four hours Valsartan 160 MG 1 tablet Orally Once a day Active Completed/Discontinued Medications Medication Drug Class(es) Dates Sig (Normalized) Sig (Original) amLODIPine 5 mg oral tablet (1 source) Dihydropyridine Calcium Channel Ebony Start: 11-17-2023 End: 11-19-2023 take 5 mg by mouth once daily Amlodipine Discontinued 5 MG PO Daily November 17, 2023 12:00am November 19, 2023 1:12pm naproxen 500 mg oral tablet (1 source) Nonsteroidal Anti-inflammatory Drug Start: 11-17-2023 End: 11-19-2023 Naproxen Discontinued MG TABLET November 17, 2023 12:00am November 19, 2023 1:12pm pravastatin sodium 20 mg oral tablet (1 source) HMG-CoA Reductase Inhibitor Start: 11-17-2023 End: 11-19-2023 take 20 mg by mouth once daily in the evening Pravastatin Discontinued 20 MG PO Every evening November 17, 2023 12:00am November 19, 2023 1:12pm Problems Problem Classification Problem Date Documented Date Episodic/Chronic Acute myocardial infarction (3 sources) Myocardial infarction; Translations: [Non-ST elevation (NSTEMI) myocardial infarction] Onset: 3 11-18-2023 Chronic Diabetes mellitus without complication (9 sources) Type 2 diabetes mellitus without complications; Translations: [Diabetes mellitus] Onset: 2 Chronic Diabetes mellitus without complication (3 sources) Hyperglycemia; Translations: [Hyperglycemia, unspecified] Onset: 3 11-18-2023 Episodic Disorders of lipid metabolism (1 source) Pure hypercholesterolemia, unspecified; Translations: [PURE HYPERCHOLESTEROLEMIA UNSPEC] Onset: 2 Chronic Essential hypertension (6 sources) Essential (primary) hypertension; Translations: [Essential hypertension] Onset: 2 11-18-2023 Chronic Other aftercare (1 source) Long-term current use of insulin; Translations: [roasterman (current) use of insulin] Episodic Other aftercare (1 source) roasterman (current) use of insulin Episodic Lia-; endo-; and myocarditis; cardiomyopathy (except that caused by tuberculosis or sexually transmitted disease) (5 sources) Hypertrophic obstructive cardiomyopathy; Translations: [Obstructive hypertrophic cardiomyopathy] Onset: 3 11-18-2023 Chronic Results Test Name Value Interpretation Reference Range Facility Basic Metabolic Panelon 10-29 Anion gap [Moles/Vol] 12.7 mmol/L Normal 6.0-15.[address] [facility] Comment on above: Performed By: #### C K, HS TROP #### [facility] [address] Calcium [Mass/Vol] 8.7 mg/dL Normal 8.6-10.3 [facility] Comment on above: Performed By: #### C K, HS TROP #### [facility] [address] [place] [address] [place] Chloride [Moles/Vol] 108 mmol/L High 98-107 [facility] Comment on above: Performed By: #### C K, HS TROP #### [facility] [address] [place] [address] [place] CO2 [Moles/Vol] 22.2 mmol/L Normal 21.0-31.0 [facility] Comment on above: Performed By: #### C K, HS TROP #### [facility] [address] [place] [address] [place] Creatinine [Mass/Vol] 0.56 mg/dL Low 0.60-1.20 [facility] Comment on above: Performed By: #### C K, HS TROP #### [facility] [address] [place] [address] [place] Creatinine Clr Calc Pharmacy 76.28 Normal [facility] Comment on above: Result Comment: PERF ORMED BY: [place] [address] PATHOLOGIST MANAGER OF [employer] JAIN M.D. Performed By: #### C K, HS TROP #### [facility] [address] [place] [address] [place] GFR/1.73 sq M.predicted MDRD (S/P/Bld) [Vol rate/Area] mL/min/{1.73_m2} Normal [facility] Comment on above: Performed By: #### C K, HS TROP #### [facility] [address] [place] [address] [place] Glucose [Mass/Vol] 126 mg/dL High 70-100 [facility] Comment on above: Result Comment: [facility] Glucose Reference Range is dependent on time and content of last meal. Glucose of more than 200 mg/dL in a nonstressed, ambulatory subject supports the diagnosis of Diabetes Mellitus. ADA recommended reference range Performed By: #### C K, HS TROP #### [facility] [address] [place] [address] [place] Potassium [Moles/Vol] 3.9 mmol/L Normal 3.5-5.1 [facility] Comment on above: Performed By: #### C K, HS TROP #### [facility] [address] [place] [address] [place] Sodium [Moles/Vol] 139 mmol/L Normal 136-145 [facility] Comment on above: Performed By: #### C K, HS TROP #### [facility] [address] [place] [address] [place] Urea nitrogen [Mass/Vol] 15 mg/dL Normal 7-25 [facility] Comment on above: Performed By: #### C K, HS TROP #### [facility] [address] [place] [address] [place] Basophils Auto (Bld) [#/Vol] Ordered By: Arjun Estrella on 11-19-2023 Basophils (Bld) [#/Vol] 0.1 10*3/uL 0.0-0.2 [facility] Basophils/100 WBC Auto (Bld) Ordered By: Arjun Estrella on 11-19-2023 Basophils/100 WBC (Bld) 0.7 % . [facility] Calcium [Mass/volume] in Ser um or PlasmaOrdered By: Arjun Estrella on 11-19-2023 Calcium [Mass/Vol] 8.7 mg/dL 8.6-10.3 [facility] Carbon dioxide, total [Moles /volume] in Serum or PlasmaOrdered By: Arjun Estrella on 11-19-2023 CO2 [Moles/Vol] 22.2 mmol/L 21.0-31.0 [facility] Chloride [Moles/volume] in S nate or PlasmaOrdered By: Arjun Estrella on 11-19-2023 Chloride [Moles/Vol] 108 mmol/L 98-107 [facility] Complete Blood Count Auto Di ffon 11-19-2023 Basophils (Bld) [#/Vol] 0.1 10*3/uL Normal 0.0-0.2 [facility] Comment on above: Result Comment: PERF ORMED BY: [place] [address] PATHOLOGIST MANAGER OF [employer] JAIN M.D. Performed By: #### C K, HS TROP #### [place] [address] [place] Basophils/100 WBC (Bld) 0.7 % Normal . [facility] Comment on above: Performed By: #### C K, HS TROP #### [place] [address] [place] Eosinophils (Bld) [#/Vol] 0.0 10*3/uL Normal 0.0-0.45 [facility] Comment on above: Performed By: #### C K, HS TROP #### [facility] [address] [place] [address] [place] Eosinophils/100 WBC (Bld) 0.3 % Normal . [facility] Comment on above: Performed By: #### C K, HS TROP #### [facility] [address] [place] [address] [place] Erythrocyte distribution width (RBC) [Ratio] 13.5 % Normal 11.9-15.3 [facility] Comment on above: Performed By: #### C K, HS TROP #### [address] Hematocrit (Bld) [Volume fraction] 42.3 % Normal 34.0-46.4 [facility] Comment on above: Performed By: #### C K, HS TROP #### [address] Hemoglobin (Bld) [Mass/Vol] 14.4 g/dL Normal 11.8-15.4 [facility] Comment on above: Performed By: #### C K, HS TROP #### [address] Lymphocytes (Bld) [#/Vol] 2.0 10*3/uL Normal 1.00-4.8 [facility] Comment on above: Performed By: #### C K, HS TROP #### [address] Lymphocytes/100 WBC (Bld) 29.1 % Normal . [facility] Comment on above: Performed By: #### C K, HS TROP #### [address] MCH (RBC) [Entitic mass] 29.6 pg Normal 24.7-34.3 [facility] Comment on above: Performed By: #### C K, HS TROP #### [address] MCV (RBC) [Entitic vol] 87.0 fL Normal 80-100 [facility] Comment on above: Performed By: #### C K, HS TROP #### [address] Mean Corpuscular HGB Conc 34.0 g/dL Normal 32.0-35.0 [facility] Comment on above: Performed By: #### C K, HS TROP #### [place] [address] [place] Monocytes (Bld) [#/Vol] 0.8 10*3/uL Normal 0.0-0.8 [facility] Comment on above: Performed By: #### C K, HS TROP #### [facility] [address] [place] [address] [place] Monocytes/100 WBC (Bld) 12.0 % Normal . [facility] Comment on above: Performed By: #### C K, HS TROP #### [facility] [address] [place] [address] [place] Neutrophils (Bld) [#/Vol] 4.0 10*3/uL Normal 1.8-7.7 [facility] Comment on above: Performed By: #### C K, HS TROP #### [facility] [address] Neutrophils/100 WBC (Bld) 57.9 % Normal . [facility] Comment on above: Performed By: #### C K, HS TROP #### [facility] [address] NRBC% 0.1 /100{WBC} Normal 0-0.5 [facility] Comment on above: Performed By: #### C K, HS TROP #### [facility] [address] Platelet mean volume (Bld) [Entitic vol] 8.1 fL Normal 6.3-10.7 [facility] Comment on above: Performed By: #### C K, HS TROP #### [facility] [address] [place] [address] [place] Platelets (Bld) [#/Vol] 225 10*3/uL Normal 150-450 [facility] Comment on above: Performed By: #### C K, HS TROP #### [facility] [address] [place] [address] [place] RBC (Bld) [#/Vol] 4.86 10*6/uL Normal 3.60-5.00 [facility] Comment on above: Performed By: #### C K, HS TROP #### [facility] [address] [place] [address] [place] WBC (Bld) [#/Vol] 7.0 10*3/uL Normal 3.8-11.6 [facility] Comment on above: Performed By: #### C K, HS TROP #### [facility] [address] [place] [id number] [facility] Creatinine [Mass/volume] in Serum or PlasmaOrdered By: Arjun Estrella on 11-19-2023 Creatinine [Mass/Vol] 0.56 mg/dL 0.60-1.20 [facility] ECG 12 lead ECGon 11-19-2023 ECG 12 lead ECG [facility] [address] [place] [address] Electrocardiograph Report Signed Patient: Whitney Sauceda MR#: [id number] 54 : 1960 Acct:[id number] Age/Sex: 63 / F ADM Date: 11/17/23 Loc: Room: [address] [place] [address] Type: DIS IN Attending Dr: Arjun Estrella DO Ordering Provider: Usha Strange DO Date of Service: 11/19/23 ECG/ECG 12 lead ECG: Post Angioplasty Procedure in AM Copies to: Test Reason : Blood Pressure : / mmHG Vent. Rate : 076 BPM Atrial Rate : 076 BPM P-R Int : 138 ms QRS Dur : 074 ms QT Int : 422 ms P-R-T Axes : 052 040 -31 degrees QTc Int : 474 ms Normal sinus rhythm T wave abnormality, consider anterolateral ischemia Prolonged QT Abnormal ECG When compared with ECG of 18-NOV-2023 07:41, No significant change was found Confirmed by [facility] ([id number]) on 11/19/2023 3:25:31 PM Referred By: Electronically Signed By:MARVA DRAPER MD FACC Transcribed By: MUS Signed By Prasanna Draper MD 11/19/23 1525 Normal [facility] Eosinophils Auto (Bld) [#/Vo l]Ordered By: Arjun Estrella on 11-19-2023 Eosinophils (Bld) [#/Vol] 0.0 10*3/uL 0.0-0.45 [facility] Eosinophils/100 WBC Auto (Bl d)Ordered By: Arjun Estrella on 11-19-2023 Eosinophils/100 WBC (Bld) 0.3 % . [facility] Erythrocyte distribution wid th Auto (RBC) [Ratio]Ordered By: Arjun Estrella on 11-19-2023 Erythrocyte distribution width (RBC) [Ratio] 13.5 % 11.9-15.3 [facility] Glucose Glucometer (BldC) [M ass/Vol]Ordered By: Arjun Estrella on 11-19-2023 Glucose [Mass/Vol] 153 mg/dL [facility] Comment on above: Random Glucose Refer ence Range is dependent on time and content of last meal. Glucose of more than 200 mg/dL in a nonstressed, ambulatory subject supports the diagnosis of Diabetes Mellitus. Glucose Poct Glucometerson 1 01-20-2023 Glucose [Mass/Vol] 153 mg/dL Normal [facility] Comment on above: Result Comment: [place] om Glucose Reference Range is dependent on time and content of last meal. Glucose of more than 200 mg/dL in a nonstressed, ambulatory subject supports the diagnosis of Diabetes Mellitus. PERFORMED BY: [phone] PATHOLOGIST MANAGER OF [employer] JAIN M.D. Performed By: #### C K, [facility] #### [address] Glucose [Mass/Vol] 133 mg/dL Normal [facility] Comment on above: Result Comment: [place] [facility] Glucose Reference Range is dependent on time and content of last meal. Glucose of more than 200 mg/dL in a nonstressed, ambulatory subject supports the diagnosis of Diabetes Mellitus. PERFORMED BY: [place] [phone] PATHOLOGIST MANAGER OF [employer] JIAN M.D. Performed By: #### G LULS #### Point of Care testing , Glucose [Mass/volume] in Ser um or PlasmaOrdered By: Arjun Estrella on 11-19-2023 Glucose [Mass/Vol] 126 mg/dL 70-100 [facility] Comment on above: ADA recommended refe rence rangeRandom Glucose Reference Range is dependent on time and content of last meal. Glucose of more than 200 mg/dL in a nonstressed, ambulatory subject supports the diagnosis of Diabetes Mellitus. Hematocrit Auto (Bld) [Volum e fraction]Ordered By: Arjun Estrella on 11-19-2023 Hematocrit (Bld) [Volume fraction] 42.3 % 34.0-46.4 [facility] Hemoglobin [Mass/volume] in BloodOrdered By: Arjun Estrella on 11-19-2023 Hemoglobin (Bld) [Mass/Vol] 14.4 g/dL 11.8-15.4 [facility] Leukocytes [#/volume] correc fahad for nucleated erythrocytes in Blood by Automated counOrdered By: Arjun Estrella on 11-19-2023 WBC corrected for nucl RBC Auto (Bld) [#/Vol] 7.0 10*3/uL 3.8-11.6 [facility] Lymphocytes Auto (Bld) [#/Vo l]Ordered By: Arjun Estrella on 11-19-2023 Lymphocytes (Bld) [#/Vol] 2.0 10*3/uL 1.00-4.8 [facility] Lymphocytes/100 WBC Auto (Bl d)Ordered By: Arjun Estrella on 11-19-2023 Lymphocytes/100 WBC (Bld) 29.1 % . [facility] MCH Auto (RBC) [Entitic mass ]Ordered By: Arjun Estrella on 11-19-2023 MCH (RBC) [Entitic mass] 29.6 pg 24.7-34.3 [facility] MCHC Auto (RBC) [Mass/Vol]Or dered By: Arjun Estrella on 11-19-2023 MCHC (RBC) [Mass/Vol] 34.0 g/dL 32.0-35.0 [facility] MCV Auto (RBC) [Entitic vol] Ordered By: Arjun Estrella on 11-19-2023 MCV (RBC) [Entitic vol] 87.0 fL 80-100 [facility] Monocytes Auto (Bld) [#/Vol] Ordered By: Arjun Estrella on 11-19-2023 Monocytes (Bld) [#/Vol] 0.8 10*3/uL 0.0-0.8 [facility] Monocytes/100 WBC Auto (Bld) Ordered By: Arjun Estrella on 11-19-2023 Monocytes/100 WBC (Bld) 12.0 % . [facility] Neutrophils Auto (Bld) [#/Vo l]Ordered By: Arjun Estrella on 11-19-2023 Neutrophils (Bld) [#/Vol] 4.0 10*3/uL 1.8-7.7 [facility] Neutrophils/100 WBC Auto (Bl d)Ordered By: Arjun Estrella on 11-19-2023 Neutrophils/100 WBC (Bld) 57.9 % . [facility] No Panel InformationOrdered By: Arjun Estrella on 11-19-2023 Estimated GFR (CKD-EPI) > 60.0 mL/Min [facility] Creatinine Clearance (Chem 76.28 [facility] Nucleated erythrocytes [Pres ence] in Blood by Automated countOrdered By: Arjun Estrella on 11-19-2023 Nucleated RBC Auto Ql (Bld) 0.1 /100{WBC} 0-0.5 [facility] Platelet mean volume Auto (B ld) [Entitic vol]Ordered By: Arjun Estrella on 11-19-2023 Platelet mean volume (Bld) [Entitic vol] 8.1 fL 6.3-10.7 [facility] Platelets Auto (Bld) [#/Vol] Ordered By: Arjun Estrella on 11-19-2023 Platelets (Bld) [#/Vol] 225 10*3/uL 150-450 [facility] Potassium [Moles/volume] in Serum or PlasmaOrdered By: Arjun Estrella on 11-19-2023 Potassium [Moles/Vol] 3.9 mmol/L 3.5-5.1 [facility] RBC Auto (Bld) [#/Vol]Ordere d By: Arjun Estrella on 11-19-2023 RBC (Bld) [#/Vol] 4.86 10*6/uL 3.60-5.00 [facility] Serum or plasma anion gap de terminationOrdered By: Arjun Estrella on 11-19-2023 Anion gap [Moles/Vol] 12.7 mmol/L 6.0-15.[address] [facility] Sodium [Moles/volume] in Ser um or PlasmaOrdered By: Arjun Estrella on 11-19-2023 Sodium [Moles/Vol] 139 mmol/L 136-145 [facility] Troponin I High Sensitivityo n 11-19-2023 Troponin I High Sensitivity 321.4 pg/mL Off scale high 0.0-15.0 [facility] Comment on above: Result Comment: Crit ical Result : Called to and read back by: SHELBY MURPHY at: 11/19/2023 05:06:01 by:[id number] PERFORMED BY: [place] [address] PATHOLOGIST MANAGER OF [employer] AJIN M.D. Performed By: #### C K, HS TROP #### [address] Troponin I.cardiac [Mass/vol ume] in Serum or Plasma by Detection limit <= 0.01 ng/Ordered By: Usha Srtange on 11-19-2023 Troponin I.cardiac DL <= 0.01 ng/mL [Mass/Vol] 321.4 pg/mL 0.0-15.0 [facility] Comment on above: Critical Result : Ca lled to and read back by: SHELBY MURPHY at: 11/19/2023 05:06:01 by:[id number] Urea nitrogen [Mass/volume] in Serum or PlasmaOrdered By: Arjun Estrella on 11-19-2023 Urea nitrogen [Mass/Vol] 15 mg/dL 7-25 [facility] WBC Auto (Bld) [#/Vol]Ordere d By: Arjun Estrella on 11-19-2023 WBC (Bld) [#/Vol] 7.0 10*3/uL 3.8-11.6 [facility] A1C with Estimated Average G endy 11-18-2023 Glucose [Mass/Vol] 255 mg/dL Normal [facility] Comment on above: Result Comment: PERF ORMED BY: [place] [address] PATHOLOGIST MANAGER OF [employer] JAIN M.D. Performed By: #### A 1C WTH eA #### [facility] [address] HbA1c (Bld) [Mass fraction] 10.5 % High 4.3-5.6 [facility] Comment on above: Result Comment: Incr eased risk for diabetes: 5.7 - 6.4 diabetes: >6.4 glycemic control for adults with diabetes: <7.0 Performed By: #### A 1C WT eA #### [facility] [address] [place] [address] [place] Activated partial thrombopla stin time (aPTT) in platelet poor plasma by coagulation aOrdered By: Arjun Estrella on 11-18-2023 aPTT Coag (PPP) [Time] 45.7 s 25.1-36.[address] [facility] Comment on above: A hematocrit value g reater than 55% may lead to inaccurate results in coagulation testing. Patients having hematocrit values >55% require a special collection tube for coagulation studies. Please contact the laboratory at [phone] for redraw instructions. Albumin [Mass/volume] in Ser um or Plasma by Bromocresol green (BCG) dye binding methoOrdered By: Arjun Estrella on 11-18-2023 Albumin BCG dye [Mass/Vol] 3.4 g/dL 3.5-5.7 [facility] Basic Metabolic Panelon 10-29 Anion gap [Moles/Vol] 14.4 mmol/L Normal 6.0-15.[address] [facility] Comment on above: Performed By: #### B MP, BHOB, LACTIC #### [facility] [address] Calcium [Mass/Vol] 8.6 mg/dL Normal 8.6-10.3 [facility] Comment on above: Performed By: #### B MP, BHOB, LACTIC #### [facility] [address] Chloride [Moles/Vol] 102 mmol/L Normal 98-107 [facility] Comment on above: Performed By: #### B MP, BHOB, LACTIC #### [facility] [address] [address] CO2 [Moles/Vol] 20.8 mmol/L Low 21.0-31.0 [facility] Comment on above: Performed By: #### B CK VILLALPANDO, LACTIC #### [facility] [address] Creatinine [Mass/Vol] 0.75 mg/dL Normal 0.60-1.20 [facility] Comment on above: Performed By: #### B CK VILLALPANDO, LACTIC #### [facility] [address] [place] [address] [place] Creatinine Clr Calc Pharmacy 76.28 [facility] Comment on above: Performed By: #### B CK VILLALPANDO LACTIC #### [facility] [address] [place] [address] [place] GFR/1.73 sq M.predicted MDRD (S/P/Bld) [Vol rate/Area] mL/min/{1.73_m2} [facility] Comment on above: Performed By: #### B CK VILLALPANDO, LACTIC #### [facility] [address] Glucose [Mass/Vol] 148 mg/dL High 70-100 [facility] Comment on above: Result Comment: [place] Glucose Reference Range is dependent on time and content of last meal. Glucose of more than 200 mg/dL in a nonstressed, ambulatory subject supports the diagnosis of Diabetes Mellitus. ADA recommended reference range Performed By: #### B CK VILLALPANDO, LACTIC #### [facility] [address] Potassium [Moles/Vol] 3.2 mmol/L Low 3.5-5.1 [facility] Comment on above: Performed By: #### B CK VILLALPANDO, LACTIC #### [facility] 1111 [place] [address] [place] Sodium [Moles/Vol] 134 mmol/L Low 136-145 [facility] Comment on above: Performed By: #### B CK VILLALPANDO, LACTIC #### [facility] [address] [place] [address] [place] Urea nitrogen [Mass/Vol] 27 mg/dL High 7-25 [facility] Comment on above: Performed By: #### B MP, BHOB, LACTIC #### [facility] [address] [place] [address] Beta Hydroxybuterateon 11-18 Beta Hydroxybuterate 1.40 mmol/L High 0.02-0.27 [facility] Comment on above: Result Comment: PERF ORMED BY: [place] [address] PATHOLOGIST MANAGER OF [employer] JAIN M.D. Performed By: #### G LULS #### Point of Care testing , Beta Hydroxybuterate 2.60 mmol/L High 0.02-0.27 [facility] Comment on above: Result Comment: PERF ORMED BY: [place] [address] PATHOLOGIST MANAGER OF [employer] JAIN M.D. Performed By: #### G LULS #### Point of Care testing , Beta Hydroxybuterate 4.00 mmol/L High 0.02-0.27 [facility] Comment on above: Result Comment: PERF ORMED BY: [place] [address] PATHOLOGIST MANAGER OF [employer] JAIN M.D. Performed By: #### B MP, BHOB, LACTIC #### [facility] [address] [place] [address] Beta hydroxybutyrate [Moles/ volume] in Serum or PlasmaOrdered By: Arjun Esterlla on 11-18-2023 Beta hydroxybutyrate [Moles/Vol] 1.40 mmol/L 0.02-0.27 [facility] Complete Blood Count Auto Di ffon 11-18-2023 Basophils (Bld) [#/Vol] 0.1 10*3/uL Normal 0.0-0.2 [facility] Comment on above: Result Comment: PERF ORMED BY: [place] [address] PATHOLOGIST MANAGER OF [employer] JAIN M.D. Performed By: #### G NICKIELS #### Point of Care testing , Basophils/100 WBC (Bld) 0.6 % Normal . [facility] Comment on above: Performed By: #### G NICKIELS #### Point of Care testing , Eosinophils (Bld) [#/Vol] 0.0 10*3/uL Normal 0.0-0.45 [facility] Comment on above: Performed By: #### G LULS #### Point of Care testing , Eosinophils/100 WBC (Bld) 0.1 % Normal . [facility] Comment on above: Performed By: #### G NICKIELS #### Point of Care testing , Erythrocyte distribution width (RBC) [Ratio] 13.5 % Normal 11.9-15.3 [facility] Comment on above: Performed By: #### G NICKIELS #### Point of Care testing , Hematocrit (Bld) [Volume fraction] 41.7 % Normal 34.0-46.4 [facility] Comment on above: Performed By: #### G NICKIELS #### Point of Care testing , Hemoglobin (Bld) [Mass/Vol] 13.8 g/dL Normal 11.8-15.4 [facility] Comment on above: Performed By: #### G NICKIELS #### Point of Care testing , Lymphocytes (Bld) [#/Vol] 2.1 10*3/uL Normal 1.00-4.8 [facility] Comment on above: Performed By: #### G NICKIELS #### Point of Care testing , Lymphocytes/100 WBC (Bld) 18.9 % Normal . [facility] Comment on above: Performed By: #### G NICKIELS #### Point of Care testing , MCH (RBC) [Entitic mass] 28.8 pg Normal 24.7-34.3 [facility] Comment on above: Performed By: #### G NICKIELS #### Point of Care testing , MCV (RBC) [Entitic vol] 86.9 fL Normal 80-100 [facility] Comment on above: Performed By: #### G NICKIELS #### Point of Care testing , Mean Corpuscular HGB Conc 33.2 g/dL Normal 32.0-35.0 [facility] Comment on above: Performed By: #### Calvin MAYERS #### Point of Care testing , Monocytes (Bld) [#/Vol] 0.9 10*3/uL High 0.0-0.8 [facility] Comment on above: Performed By: #### Calvin MAYERS #### Point of Care testing , Monocytes/100 WBC (Bld) 7.9 % Normal . [facility] Comment on above: Performed By: #### Calvin MAYERS #### Point of Care testing , Neutrophils (Bld) [#/Vol] 8.1 10*3/uL High 1.8-7.7 [facility] Comment on above: Performed By: #### Calvin MAYERS #### Point of Care testing , Neutrophils/100 WBC (Bld) 72.5 % Normal . [facility] Comment on above: Performed By: #### Calvin MAYERS #### Point of Care testing , NRBC% 0.0 /100{WBC} Normal 0-0.5 [facility] Comment on above: Performed By: #### Calvin MAYERS #### Point of Care testing , Platelet mean volume (Bld) [Entitic vol] 8.2 fL Normal 6.3-10.7 [facility] Comment on above: Performed By: #### Calvin MAYERS #### Point of Care testing , Platelets (Bld) [#/Vol] 284 10*3/uL Normal 150-450 [facility] Comment on above: Performed By: #### Calvin MAYERS #### Point of Care testing , RBC (Bld) [#/Vol] 4.80 10*6/uL Normal 3.60-5.00 [facility] Comment on above: Performed By: #### Calvin MAYERS #### Point of Care testing , WBC (Bld) [#/Vol] 11.2 10*3/uL Normal 3.8-11.6 [facility] Comment on above: Performed By: #### Calvin MAYERS #### Point of Care testing , ECG 12 lead ECGon 11-18-2023 ECG 12 lead ECG [facility] [address] Electrocardiograph Report Signed Patient: Whitney Sauceda MR#: [id number] [birth year] : 1960 Acct:[id number] Age/Sex: 63 / F ADM Date: 11/17/23 Loc: Room: [address] [place] [address] Type: ADM IN Attending Dr: Arjun Estrella DO Ordering Provider: Arjun Estrella DO Date of Service: 11/18/23 ECG/ECG 12 lead ECG: NSTEMI Copies to: Test Reason : Blood Pressure : / mmHG Vent. Rate : 079 BPM Atrial Rate : 079 BPM P-R Int : 136 ms QRS Dur : 074 ms QT Int : 426 ms P-R-T Axes : 072 026 -74 degrees QTc Int : 488 ms Normal sinus rhythm T wave abnormality, consider anterolateral ischemia Abnormal ECG When compared with ECG of 17-NOV-2023 17:25, (Unconfirmed) T wave inversion less evident in Inferior leads Confirmed by BONNY PENA [facility] ([id number]) on 11/18/2023 5:19:07 PM Referred By: Electronically Signed By:MARVA DRAPER MD [facility] Transcribed By: MUS Signed By Prasanna Draper MD 11/18/23 1719 [facility] ECH echo transthoracicon ECH echo transthoracic [facility] Main [place] [id number] Echocardiogram Signed Patient: Whitney Sauceda MR#: [id number] 54 : 1960 Acct:[id number] Age/Sex: 63 / F ADM Date: 11/17/23 Loc: Room: [address] [place] [address] Type: ADM IN Attending Dr: Arjun Estrella DO Ordering Provider: Justo Richard MD Date of Service: 11/18/23 ECH/ECH echo transthoracic: NSTEMI Copies to: MD Becky Ambriz MD, FACC Weight: 176 lb Performed By: Chasity Duncan RDCS BSA: 1.9 m2 BP: 148/70 mmHg HR: 76 Reason For Study: NSTEMI History: DM. HTN. HLD. Former Smoker. Family history of CAD. Interpretation Summary There is asymmetrical septal hypertrophy with resting LVOT gradient between 30 and 40 mmHg, mild increase in the posterior wall thickness is noted as well with hyperdynamic left ventricle systolic function, ejection fraction estimated to be 75%. No evidence of MICHELLE There is mild mitral regurgitation. There is no prior echocardiogram noted for this patient. Procedure/Quality: A two-dimensional transthoracic echocardiogram with color flow, Doppler and injection of contrast agent Definity was performed. The study was technically good in quality. There is no prior echocardiogram noted for this patient. Left Ventricle: There is asymmetrical septal hypertrophy with resting LVOT gradient between 30 and 40 mmHg, mild increase in the posterior wall thickness is noted as well with hyperdynamic left ventricle systolic function, ejection fraction estimated to be 75%. No evidence of MICHELLE. Mitral valve annulus tissue Doppler imaging is consistent with elevated left atrial pressure. Left Atrium: The left atrium appears normal in size. The atrial septum appears normal. Right Atrium: The right atrium appears normal in size. Right Ventricle: The right ventricular size, thickness and function are normal. Aortic Valve: The aortic valve is normal in structure and function. Mitral Valve: The mitral valve is normal. There is mild mitral regurgitation. Tricuspid Valve: The tricuspid valve is normal. Pulmonic Valve: The pulmonic valve is not well seen, but is grossly normal. Arteries: The aortic root is normal size. Pericardium/Pleura: No pericardial effusion seen. There is no pleural effusion. IVC/Hepatic Viens: The IVC is normal in size with an inspiratory collapse of greater then 50%, suggesting normal right atrial pressure. Miscellaneous: No thrombus, vegetation or mass is seen. Measurements with Normals IVSd: 2.1 cm (0.7-1.1 cm)LVIDd: 2.7 cm (3.7-5.4 cm) LVPWd: 1.3 cm (0.7-1.1 cm)LVIDs: 1.5 cm (2.3-3.6 cm) LA dimension: 3.2 cm (2.3-4.0 cm)Ao root diam: 3.0 cm(2.0-3.6 cm) asc Aorta Diam: 3.6 cm(2.1-3.4cm) Doppler with Normals RVSP(TR): 26.9 mmHg (18-35mmHg) LV V1 max: 215.8 cm/sec (0.7-1.7m/s)MV E max forrest: 80.4 cm/sec(0.8-1.3m/s) MV A max forrest: 93.0 cm/sec(0.0-0.0m/s) MV E/A: 0.86 (<1.5) MMode/2D Measurements Calculations TAPSE: 2.1 cm FS: 43.8 % Ao root area: LVOT diam: 1.8 cm RV S Forrest: EDV(Teich): 7.0 cm2 LVOT area: 2.4 cm2 17.1 cm/sec 27.3 ml ESV(Teich): 6.3 ml EF(Teich): 76.9 % __ LVLd ap4: 8.3 cm SV(MOD-sp4): LAV(MOD-sp4): LA A2 area: 15.7 cm2 EDV(MOD-sp4): 63.2 ml 34.6 ml 89.5 ml LAV(MOD-sp2): LA A4 area: 14.3 cm2 LVLs ap4: 7.3 cm 36.8 ml LA length (vol): ESV(MOD-sp4): 4.8 cm 26.3 ml LA vol: 39.6 ml EF(MOD-sp4): 70.6 % LA vol index: 20.7 ml/m2 Doppler Measurements Calculations MV dec time: MV max PG: E/E' lat: 13.8 MV dec slope: 0.24 sec 239.0 mmHg E/E' med: 21.4 341.4 cm/sec2 __ Ao V2 max: LV V1 max PG: MR max forrest: TV max P.0 mmHg 230.4 cm/sec 18.6 mmHg 772.8 cm/sec Ao max PG: LV V1 mean PG: MR max P.2 mmHg 7.5 mmHg 239.2 mmHg Ao mean PG: LV V1 mean: 13.4 mmHg 119.8 cm/sec Ao V2 mean: LV V1 VTI: 33.2 cm 177.3 cm/sec Ao V2 VTI: 45.0 cm YANN(I,D): 1.8 cm2 YANN(V,D): 2.3 cm2 __ TR max forrest: 244.3 cm/sec TR max P.9 mmHg RAP systole: 3.0 mmHg Transcribed By: JORDAN Performed At: 11/18/23 1240 Signed By: Becky Landry MD, FACC 11/18/23 1543 [facility] Glucose Poct Glucometerson 1 01-19-2023 Glucose [Mass/Vol] 167 mg/dL Normal [facility] Comment on above: Result Comment: [place] Glucose Reference Range is dependent on time and content of last meal. Glucose of more than 200 mg/dL in a nonstressed, ambulatory subject supports the diagnosis of Diabetes Mellitus. PERFORMED BY: [place] [address] PATHOLOGIST MANAGER OF [employer] JAIN M.D. Performed By: #### C K, HS TROP #### [address] Commemt1 Glu2: Cleaned Meter Normal [facility] Comment on above: Result Comment: PERF ORMED BY: [place] [address] PATHOLOGIST MANAGER OF [employer] JAIN M.D. Performed By: #### G LULS #### Point of Care testing , Glucose [Mass/Vol] 213 mg/dL Normal [facility] Comment on above: Result Comment: [place] Glucose Reference Range is dependent on time and content of last meal. Glucose of more than 200 mg/dL in a nonstressed, ambulatory subject supports the diagnosis of Diabetes Mellitus. Performed By: #### G LULS #### Point of Care testing , Glucose [Mass/Vol] 153 mg/dL Normal [facility] Comment on above: Result Comment: [place] om Glucose Reference Range is dependent on time and content of last meal. Glucose of more than 200 mg/dL in a nonstressed, ambulatory subject supports the diagnosis of Diabetes Mellitus. PERFORMED BY: [place] [address] PATHOLOGIST MANAGER OF [employer] JAIN M.D. Performed By: #### C K, HS TROP #### [address] Glucose [Mass/Vol] 85 mg/dL Normal [facility] Comment on above: Result Comment: [place] om Glucose Reference Range is dependent on time and content of last meal. Glucose of more than 200 mg/dL in a nonstressed, ambulatory subject supports the diagnosis of Diabetes Mellitus. PERFORMED BY: [place] [address] PATHOLOGIST MANAGER OF [employer] JAIN M.D. Performed By: #### G LULS #### Point of Care testing , Glucose [Mass/Vol] 91 mg/dL Normal [facility] Comment on above: Result Comment: [place] om Glucose Reference Range is dependent on time and content of last meal. Glucose of more than 200 mg/dL in a nonstressed, ambulatory subject supports the diagnosis of Diabetes Mellitus. PERFORMED BY: [place] [address] PATHOLOGIST MANAGER OF [employer] JAIN M.D. Performed By: #### G LULS #### Point of Care testing , Glucose [Mass/Vol] 120 mg/dL Normal [facility] Comment on above: Result Comment: [place] Glucose Reference Range is dependent on time and content of last meal. Glucose of more than 200 mg/dL in a nonstressed, ambulatory subject supports the diagnosis of Diabetes Mellitus. PERFORMED BY: [place] [address] PATHOLOGIST MANAGER OF [employer] JAIN M.D. Performed By: #### G LULS #### Point of Care testing , Commemt1 Glu2: Cleaned Meter Normal [facility] Comment on above: Result Comment: PERF ORMED BY: [address] [place] [id number] PATHOLOGIST MANAGER OF [employer] JAIN M.D. Performed By: #### G LULS #### Point of Care testing , Glucose [Mass/Vol] 144 mg/dL Normal [facility] Comment on above: Result Comment: [place] om Glucose Reference Range is dependent on time and content of last meal. Glucose of more than 200 mg/dL in a nonstressed, ambulatory subject supports the diagnosis of Diabetes Mellitus. Performed By: #### G LULS #### Point of Care testing , Glucose [Mass/Vol] 143 mg/dL Normal [facility] Comment on above: Result Comment: [place] om Glucose Reference Range is dependent on time and content of last meal. Glucose of more than 200 mg/dL in a nonstressed, ambulatory subject supports the diagnosis of Diabetes Mellitus. PERFORMED BY: [address] [place] [address] PATHOLOGIST MANAGER OF [employer] JAIN M.D. Performed By: #### G LULS #### Point of Care testing , Glucose [Mass/Vol] 145 mg/dL Normal [facility] Comment on above: Result Comment: [place] om Glucose Reference Range is dependent on time and content of last meal. Glucose of more than 200 mg/dL in a nonstressed, ambulatory subject supports the diagnosis of Diabetes Mellitus. PERFORMED BY: [facility] [address] [place] [address] PATHOLOGIST MANAGER OF [employer] JAIN M.D. Performed By: #### G LULS #### Point of Care testing , Glucose mean value [Mass/vol ume] in Blood Estimated from glycated hemoglobinOrdered By: Arjun Estrella on 11-18-2023 Average glucose Estimated from glycated hemoglobin (Bld) [Mass/Vol] 255 mg/dL [facility] Hemoglobin A1c percentageOrd ered By: Arjun Estrella on 11-18-2023 HbA1c (Bld) [Mass fraction] 10.5 % 4.3-5.6 [facility] Comment on above: Increased risk for d iabetes: 5.7 - 6.4diabetes: >6.4glycemic control for adults with diabetes: <7.0 INR in Platelet poor plasma by Coagulation assayOrdered By: Arjun Estrella on 11-18-2023 INR Coag (PPP) [Relative time] 1.0 {INR} [facility] Comment on above: INR Therapeutic Rang e A) Pre- and Peroperative OAT started two weeks before surgery. NOT HIP SURGERY: 1.5 - 2.5 HIP SURGERY: 2 - 3B) Primary and secondary prevention of venous THROMBOSIS: 2 - 3C) Active venous thrombosis, pulmonary embolismand prevention of recurrent venous thrombosis: 2 - 3D) Prevention of arterial thromboembolismincluding patients with mechanical heart valves: 3 - 4.5 Lactate [Moles/volume] in Se rum or PlasmaOrdered By: Arjun Estrella on 11-18-2023 Lactate [Moles/Vol] 0.7 mmol/L 0.5-2.2 [facility] Lactic Acidon 11-18-2023 Lactate [Moles/Vol] 0.7 mmol/L Normal 0.5-2.2 [facility] Comment on above: Result Comment: PERF ORMED BY: [place] [address] PATHOLOGIST MANAGER OF [employer] JAIN M.D. Performed By: #### B MP, BHOB, LACTIC #### [address] No Panel InformationOrdered By: Arjun Estrella on 11-18-2023 Bedside Glucose Comment Glu2: cleaned meter [facility] Partial Thromboplastin Timeo n 11-18-2023 aPTT Coag (Bld) [Time] 45.7 s High 25.1-36.[address] [facility] Comment on above: Result Comment: A he matocrit value greater than 55% may lead to inaccurate results in coagulation testing. Patients having hematocrit values >55% require a special collection tube for coagulation studies. Please contact the laboratory at [phone] for redraw instructions. PERFORMED BY: [facility] [address] [place] [address] PATHOLOGIST MANAGER OF [employer] JAIN M.D. Performed By: #### G LULS #### Point of Care testing , aPTT Coag (Bld) [Time] 124.4 s Off scale high 25.1-36.5 [facility] Comment on above: Result Comment: Resu lts called at 0250 on 11/18/23 A hematocrit value greater than 55% may lead to inaccurate results in coagulation testing. Patients having hematocrit values >55% require a special collection tube for coagulation studies. Please contact the laboratory at [phone] for redraw instructions. PERFORMED BY: [facility] [address] [place] [address] PATHOLOGIST MANAGER OF [employer] JAIN M.D. Performed By: #### G LULS #### Point of Care testing , Phosphate [Mass/volume] in S nate or PlasmaOrdered By: Arjun Estrella on 11-18-2023 Phosphate [Mass/Vol] 1.6 mg/dL 2.5-4.5 [facility] Prothrombin Time INRon 11-18 INR Coag (PPP) [Relative time] 1.0 {INR} Normal [facility] Comment on above: Result Comment: INR Therapeutic Range A) Pre- and Peroperative OAT started two weeks before surgery. NOT HIP SURGERY: 1.5 - 2.5 HIP SURGERY: 2 - 3 B) Primary and secondary prevention of venous THROMBOSIS: 2 - 3 C) Active venous thrombosis, pulmonary embolism and prevention of recurrent venous thrombosis: 2 - 3 D) Prevention of arterial thromboembolism including patients with mechanical heart valves: 3 - 4.5 Performed By: #### G LULS #### Point of Care testing , PT Coag (PPP) [Time] 11.9 s Normal 9.0-12.9 [facility] Comment on above: Result Comment: A he matocrit value greater than 55% may lead to inaccurate results in coagulation testing. Patients having hematocrit values >55% require a special collection tube for coagulation studies. Please contact the laboratory at [phone] for redraw instructions. Performed By: #### G LULS #### Point of Care testing , Prothrombin time (PT)Ordered By: Arjun Estrella on 11-18-2023 PT Coag (PPP) [Time] 11.9 s 9.0-12.9 [facility] Comment on above: A hematocrit value g reater than 55% may lead to inaccurate results in coagulation testing. Patients having hematocrit values >55% require a special collection tube for coagulation studies. Please contact the laboratory at [phone] for redraw instructions. Renal Function Panelon 11-18 Albumin [Mass/Vol] 3.4 g/dL Low 3.5-5.7 [facility] Comment on above: Performed By: #### G LULS #### Point of Care testing , Anion gap [Moles/Vol] 10.4 mmol/L Normal 6.0-15.[address] [facility] Comment on above: Performed By: #### G LULS #### Point of Care testing , Calcium [Mass/Vol] 8.3 mg/dL Low 8.6-10.3 [facility] Comment on above: Performed By: #### G LULS #### Point of Care testing , Chloride [Moles/Vol] 108 mmol/L High 98-107 [facility] Comment on above: Performed By: #### G LULS #### Point of Care testing , CO2 [Moles/Vol] 21.2 mmol/L Normal 21.0-31.0 [facility] Comment on above: Performed By: #### G LULS #### Point of Care testing , Creatinine [Mass/Vol] 0.68 mg/dL Normal 0.60-1.20 [facility] Comment on above: Performed By: #### G LULS #### Point of Care testing , Creatinine Clr Calc Pharmacy 76.28 [facility] Comment on above: Performed By: #### G LULS #### Point of Care testing , GFR/1.73 sq M.predicted MDRD (S/P/Bld) [Vol rate/Area] mL/min/{1.73_m2} [facility] Comment on above: Performed By: #### G LULS #### Point of Care testing , Glucose [Mass/Vol] 126 mg/dL High 70-100 [facility] Comment on above: Result Comment: [place] Glucose Reference Range is dependent on time and content of last meal. Glucose of more than 200 mg/dL in a nonstressed, ambulatory subject supports the diagnosis of Diabetes Mellitus. ADA recommended reference range Performed By: #### G LULS #### Point of Care testing , Phosphate [Mass/Vol] 1.6 mg/dL Low 2.5-4.5 [facility] Comment on above: Performed By: #### G LULS #### Point of Care testing , Potassium [Moles/Vol] 3.6 mmol/L Normal 3.5-5.1 [facility] Comment on above: Performed By: #### G NICKIELS #### Point of Care testing , Sodium [Moles/Vol] 136 mmol/L Normal 136-145 [facility] Comment on above: Performed By: #### G NICKIELS #### Point of Care testing , Urea nitrogen [Mass/Vol] 24 mg/dL Normal 7-25 [facility] Comment on above: Performed By: #### G NICKIELS #### Point of Care testing , Albumin [Mass/Vol] 3.8 g/dL Normal 3.5-5.7 [facility] Comment on above: Performed By: #### G NICKIELS #### Point of Care testing , Anion gap [Moles/Vol] 14.0 mmol/L Normal 6.0-15.[address] [facility] Comment on above: Performed By: #### G LULS #### Point of Care testing , Calcium [Mass/Vol] 8.9 mg/dL Normal 8.6-10.3 [facility] Comment on above: Performed By: #### G LULS #### Point of Care testing , Chloride [Moles/Vol] 104 mmol/L Normal 98-107 [facility] Comment on above: Performed By: #### G LULS #### Point of Care testing , CO2 [Moles/Vol] 21.4 mmol/L Normal 21.0-31.0 [facility] Comment on above: Performed By: #### G NICKIELS #### Point of Care testing , Creatinine [Mass/Vol] 0.71 mg/dL Normal 0.60-1.20 [facility] Comment on above: Performed By: #### G LULS #### Point of Care testing , Creatinine Clr Calc Pharmacy 76.28 [facility] Comment on above: Performed By: #### G LULS #### Point of Care testing , GFR/1.73 sq M.predicted MDRD (S/P/Bld) [Vol rate/Area] mL/min/{1.73_m2} [facility] Comment on above: Performed By: #### G LULS #### Point of Care testing , Glucose [Mass/Vol] 108 mg/dL High 70-100 [facility] Comment on above: Result Comment: [facility] Glucose Reference Range is dependent on time and content of last meal. Glucose of more than 200 mg/dL in a nonstressed, ambulatory subject supports the diagnosis of Diabetes Mellitus. ADA recommended reference range Performed By: #### G NICKIELS #### Point of Care testing , Phosphate [Mass/Vol] 2.3 mg/dL Low 2.5-4.5 [facility] Comment on above: Performed By: #### G NICKIELS #### Point of Care testing , Potassium [Moles/Vol] 3.4 mmol/L Low 3.5-5.1 [facility] Comment on above: Performed By: #### G LULS #### Point of Care testing , Sodium [Moles/Vol] 136 mmol/L Normal 136-145 [facility] Comment on above: Performed By: #### G LULS #### Point of Care testing , Urea nitrogen [Mass/Vol] 25 mg/dL Normal 7-25 [facility] Comment on above: Performed By: #### G LULS #### Point of Care testing , Basic Metabolic Panelon 12-2 Anion gap [Moles/Vol] 23.5 mmol/L High 6.0-15.[address] [facility] Comment on above: Performed By: #### G NICKIELS #### Point of Care testing , Calcium [Mass/Vol] 8.8 mg/dL Normal 8.6-10.3 [facility] Comment on above: Performed By: #### G NICKIELS #### Point of Care testing , Chloride [Moles/Vol] 103 mmol/L Normal 98-107 [facility] Comment on above: Performed By: #### G NICKIELS #### Point of Care testing , CO2 [Moles/Vol] 11.9 mmol/L Low 21.0-31.0 [facility] Comment on above: Performed By: #### G NICKIELS #### Point of Care testing , Creatinine [Mass/Vol] 0.81 mg/dL Normal 0.60-1.20 [facility] Comment on above: Performed By: #### G NICKIELS #### Point of Care testing , Creatinine Clr Calc Pharmacy 74.20 [facility] Comment on above: Result Comment: PERF ORMED BY: [facility] [address] [place] [address] PATHOLOGIST MANAGER OF [employer] JAIN M.D. Performed By: #### G NICKIELS #### Point of Care testing , GFR/1.73 sq M.predicted MDRD (S/P/Bld) [Vol rate/Area] mL/min/{1.73_m2} [facility] Comment on above: Performed By: #### G NICKIELS #### Point of Care testing , Glucose [Mass/Vol] 199 mg/dL High 70-100 [facility] Comment on above: Result Comment: [place] Glucose Reference Range is dependent on time and content of last meal. Glucose of more than 200 mg/dL in a nonstressed, ambulatory subject supports the diagnosis of Diabetes Mellitus. ADA recommended reference range Performed By: #### G NICKIELS #### Point of Care testing , Potassium [Moles/Vol] 3.4 mmol/L Low 3.5-5.1 [facility] Comment on above: Performed By: #### G NICKIELS #### Point of Care testing , Sodium [Moles/Vol] 135 mmol/L Low 136-145 [facility] Comment on above: Performed By: #### G NICKIELS #### Point of Care testing , Urea nitrogen [Mass/Vol] 30 mg/dL High 7-25 [facility] Comment on above: Performed By: #### G NICKIELS #### Point of Care testing , Complete Blood Count Auto Di ffon 11-17-2023 Basophils (Bld) [#/Vol] 0.1 10*3/uL Normal 0.0-0.2 [facility] Comment on above: Result Comment: PERF ORMED BY: [facility] [address] [place] [address] PATHOLOGIST MANAGER OF [employer] JAIN M.D. Performed By: #### G NICKIELS #### Point of Care testing , Basophils/100 WBC (Bld) 0.5 % Normal . [facility] Comment on above: Performed By: #### G NICKIELS #### Point of Care testing , Eosinophils (Bld) [#/Vol] 0.0 10*3/uL Normal 0.0-0.45 [facility] Comment on above: Performed By: #### G NICKIELS #### Point of Care testing , Eosinophils/100 WBC (Bld) 0.0 % Normal . [facility] Comment on above: Performed By: #### G NICKIELS #### Point of Care testing , Erythrocyte distribution width (RBC) [Ratio] 13.6 % Normal 11.9-15.3 [facility] Comment on above: Performed By: #### G NICKIELS #### Point of Care testing , Hematocrit (Bld) [Volume fraction] 47.4 % High 34.0-46.4 [facility] Comment on above: Performed By: #### G NICKIELS #### Point of Care testing , Hemoglobin (Bld) [Mass/Vol] 16.0 g/dL High 11.8-15.4 [facility] Comment on above: Performed By: #### G NICKIELS #### Point of Care testing , Lymphocytes (Bld) [#/Vol] 1.5 10*3/uL Normal 1.00-4.8 [facility] Comment on above: Performed By: #### Calvin MAYERS #### Point of Care testing , Lymphocytes/100 WBC (Bld) 10.7 % Normal . [facility] Comment on above: Performed By: #### G NICKIELS #### Point of Care testing , MCH (RBC) [Entitic mass] 29.4 pg Normal 24.7-34.3 [facility] Comment on above: Performed By: #### G NICKIELS #### Point of Care testing , MCV (RBC) [Entitic vol] 87.1 fL Normal 80-100 [facility] Comment on above: Performed By: #### Calvin FULS #### Point of Care testing , Mean Corpuscular HGB Conc 33.8 g/dL Normal 32.0-35.0 [facility] Comment on above: Performed By: #### Calvin MAYERS #### Point of Care testing , Monocytes (Bld) [#/Vol] 1.0 10*3/uL High 0.0-0.8 [facility] Comment on above: Performed By: #### Calvin MAYERS #### Point of Care testing , Monocytes/100 WBC (Bld) 6.8 % Normal . [facility] Comment on above: Performed By: #### G NICKIELS #### Point of Care testing , Neutrophils (Bld) [#/Vol] 11.5 10*3/uL High 1.8-7.7 [facility] Comment on above: Performed By: #### G NICKIELS #### Point of Care testing , Neutrophils/100 WBC (Bld) 82.0 % Normal . [facility] Comment on above: Performed By: #### G NICKIELS #### Point of Care testing , NRBC% 0.1 /100{WBC} Normal 0-0.5 [facility] Comment on above: Performed By: #### G NICKIELS #### Point of Care testing , Platelet mean volume (Bld) [Entitic vol] 8.6 fL Normal 6.3-10.7 [facility] Comment on above: Performed By: #### G LULS #### Point of Care testing , Platelets (Bld) [#/Vol] 319 10*3/uL Normal 150-450 [facility] Comment on above: Performed By: #### G LULS #### Point of Care testing , RBC (Bld) [#/Vol] 5.45 10*6/uL High 3.60-5.00 [facility] Comment on above: Performed By: #### G LULS #### Point of Care testing , WBC (Bld) [#/Vol] 14.0 10*3/uL High 3.8-11.6 [facility] Comment on above: Performed By: #### G RIANA #### Point of Care testing , Creatine Kinaseon 11-17-2023 CK [Catalytic activity/Vol] 137 U/L Normal 30-223 [facility] Comment on above: Performed By: #### H S TROP, CK #### [facility] [address] [id number] [place] CK [Catalytic activity/Vol] 165 U/L Normal 30-223 [facility] Comment on above: Result Comment: Hemo lysis is present at a level that could interfere with the result. Performed By: #### C K, HS TROP #### [facility] [address] [id number] [place] Creatine kinase [Enzymatic a ctivity/volume] in Serum or PlasmaOrdered By: Arjun Estrella on 11-17-2023 CK [Catalytic activity/Vol] 137 U/L 30-223 [facility] ECG 12 lead ECGon 11-17-2023 ECG 12 lead ECG [facility] [address] [place] [address] Electrocardiograph Report Signed Patient: Whitney Sauceda MR#: [id number] 54 : 1960 Acct:[id number] Age/Sex: 63 / F ADM Date: 11/17/23 Loc: Room: [address] [place] [address] Type: ADM IN Attending Dr: Arjun Estrella DO Ordering Provider: Arjun Estrella DO Date of Service: 11/17/23 ECG/ECG 12 lead ECG: elevated trops Copies to: Test Reason : Blood Pressure : / mmHG Vent. Rate : 084 BPM Atrial Rate : 084 BPM P-R Int : 142 ms QRS Dur : 088 ms QT Int : 424 ms P-R-T Axes : 052 040 269 degrees QTc Int : 501 ms Normal sinus rhythm with sinus arrhythmia Prolonged QT Abnormal ECG No previous ECGs available Confirmed by BONNY PENA [facility] ([id number][facility] on 11/18/2023 5:19:01 PM Referred By: Electronically Signed By:MARVA DRAPER MD [facility] Transcribed By: MUS Signed By Prasanna Draper MD 11/18/23 4933 Normal [facility] Glucose Poct Glucometerson 1 01-18-2023 Glucose [Mass/Vol] 143 mg/dL [facility] Comment on above: Result Comment: [facility] Glucose Reference Range is dependent on time and content of last meal. Glucose of more than 200 mg/dL in a nonstressed, ambulatory subject supports the diagnosis of Diabetes Mellitus. PERFORMED BY: [address] [place] [address] PATHOLOGIST MANAGER OF [employer] JAIN M.D. Performed By: #### G LULS #### Point of Care testing , Partial Thromboplastin Timeo n 11-17-2023 aPTT Coag (Bld) [Time] 31.5 s Normal 25.1-36.[address] [facility] Comment on above: Result Comment: A he matocrit value greater than 55% may lead to inaccurate results in coagulation testing. Patients having hematocrit values >55% require a special collection tube for coagulation studies. Please contact the laboratory at [phone] for redraw instructions. PERFORMED BY: [facility] [address] [place] [address] PATHOLOGIST MANAGER OF [employer] JAIN M.D. Performed By: #### G LULS #### Point of Care testing , Prothrombin Time INRon 11-17 INR Coag (PPP) [Relative time] 1.0 {INR} Normal [facility] Comment on above: Result Comment: INR Therapeutic Range A) Pre- and Peroperative OAT started two weeks before surgery. NOT HIP SURGERY: 1.5 - 2.5 HIP SURGERY: 2 - 3 B) Primary and secondary prevention of venous THROMBOSIS: 2 - 3 C) Active venous thrombosis, pulmonary embolism and prevention of recurrent venous thrombosis: 2 - 3 D) Prevention of arterial thromboembolism including patients with mechanical heart valves: 3 - 4.5 Performed By: #### G LULS #### Point of Care testing , PT Coag (PPP) [Time] 11.3 s Normal 9.0-12.9 [facility] Comment on above: Result Comment: A he matocrit value greater than 55% may lead to inaccurate results in coagulation testing. Patients having hematocrit values >55% require a special collection tube for coagulation studies. Please contact the laboratory at [phone] for redraw instructions. Performed By: #### G LULS #### Point of Care testing , Troponin I High Sensitivityo n 11-17-2023 Troponin I High Sensitivity 854.3 pg/mL Off scale high 0.0-15.0 [facility] Comment on above: Result Comment: Crit ical Result : Called to and read back by: KAREEN [place]KE at: 11/17/2023 22:14:50 by:[id number] PERFORMED BY: [place] [address] PATHOLOGIST MANAGER OF [employer] JAIN M.D. Performed By: #### H S TROP, CK #### [facility] [address] [place] [address] Troponin I High Sensitivity 958.1 pg/mL Off scale high 0.0-15.0 [facility] Comment on above: Result Comment: Crit ical Result : Called to and read back by: MORALES PEREYRA at: 11/17/2023 18:35:47 by:[id number] PERFORMED BY: [place] [address] PATHOLOGIST MANAGER OF [employer] JAIN M.D. Performed By: #### C K, HS TROP #### [facility] [address] [id number] [facility] CBC AUTO DIFFon 08-27-2022 BASO # 0.1 103/ul Normal 0.0-0.1 [facility] Comment on above: Performed By: #### C BC #### [facility] [address] [address] [address] Twin Bernal Basophils/100 WBC (Bld) 1.0 % Normal 0.2-2.0 [facility] Comment on above: Performed By: #### C BC #### [facility] [address] [address] [address] Twin Bernal EO # 0.5 103/ul Normal 0.0-0.7 [facility] Comment on above: Performed By: #### C BC #### [facility] [address] [place] [address] Dr. Twin Bernal Eosinophils/100 WBC (Bld) 7.7 % Critically high 0.9-7.0 [facility] Comment on above: Performed By: #### C BC #### [facility] [address] [place] [address] Dr. Twin Bernal Erythrocyte distribution width (RBC) [Ratio] 12.3 % Normal 11.0-15.0 [facility] Comment on above: Performed By: #### C BC #### [facility] [address] [place] [address] Dr. Twin Bernal Hematocrit (Bld) [Volume fraction] 41.2 % Normal 36.0-48.0 [facility] Comment on above: Performed By: #### C BC #### [facility] [address] [place] [address] Dr. Twin Bernal Hemoglobin (Bld) [Mass/Vol] 13.9 g/dL Normal 12.0-16.0 [facility] Comment on above: Performed By: #### C BC #### [facility] [address] [place] [address] Dr. Twin Bernal IG # 0.02 10e3/ul Normal 0.00-0.03 [facility] Comment on above: Performed By: #### C BC #### [facility] [address] [place] [address] Dr. Twin Bernal IG % 0.3 % Normal 0.0-0.5 [facility] Comment on above: Performed By: #### C BC #### [facility] [address] [place] [address] Dr. Twin Bernal LYMPH # 1.9 103/ul Normal 1.2-3.8 [facility] Comment on above: Performed By: #### C BC #### [facility] [address] [place] [address] Dr. Twin Bernal Lymphocytes/100 WBC (Bld) 31.9 % Normal 20.5-60.0 [facility] Comment on above: Performed By: #### C BC #### [facility] [address] [place] [address] Dr. Twin Bernal MANUAL DIFF REQ NO Normal [facility] Comment on above: Performed By: #### C BC #### [facility] [address] [place] [address] Dr. Twin Bernal MCH (RBC) [Entitic mass] 29.3 pg Normal 26.7-34.0 [facility] Comment on above: Performed By: #### C BC #### [facility] [address] [place] [address] Dr. Twin Bernal MCHC (RBC) [Mass/Vol] 33.7 g/dL Normal 29.9-35.2 [facility] Comment on above: Performed By: #### C BC #### [facility] [address] [place] [address] Dr. Twin Bernal MCV (RBC) [Entitic vol] 86.9 fL Normal 81.0-99.0 [facility] Comment on above: Performed By: #### C BC #### [facility] [address] [place] [address] Dr. Twin Bernal MONO # 0.4 103/ul Normal 0.3-0.8 [facility] Comment on above: Performed By: #### C BC #### [facility] [address] [place] [address] Dr. Twin Bernal Monocytes/100 WBC (Bld) 6.0 % Normal 1.7-12.0 [facility] Comment on above: Performed By: #### C BC #### [facility] [address] [place] [address] Dr. Twin Bernal NEUT # 3.1 103/ul Normal 1.4-6.5 [facility] Comment on above: Performed By: #### C BC #### [facility] [address] [place] [address] Dr. Twin Bernal Neutrophils/100 WBC (Bld) 53.1 % Normal 43.0-75.0 [facility] Comment on above: Performed By: #### C BC #### [facility] [address] [place] [address] Dr. Twin Bernal Platelet mean volume (Bld) [Entitic vol] 9.5 fL Normal 9.5-13.5 [facility] Comment on above: Performed By: #### C BC #### [facility] [address] [place] [address] Dr. Twin Bernal PLT 290 103/ul Normal 150-450 [facility] Comment on above: Performed By: #### C BC #### [facility] [address] [place] [address] Dr. Twin Bernal RBC 4.74 106/ul Normal 4.20-5.40 [facility] Comment on above: Performed By: #### C BC #### [facility] [address] [place] [address] Dr. Twin Bernal WBC 5.8 103/ul Normal 4.0-11.0 [facility] Comment on above: Performed By: #### C BC #### [facility] [address] [place] [address] Dr. Twin Bernal FREE T4on 08-27-2022 Free T4 [Mass/Vol] 0.84 ng/dL Normal 0.76-1.46 [facility] Comment on above: Performed By: #### F T4 #### [facility] [address] [place] [address] Dr. Twin Bernal LIPID PROFILEon 08-27-2022 CHOL-HDL RATIO NORM SEE BELOW Normal [facility] Comment on above: Result Comment: 3.3 - 4.4 LOW RISK 4.4 - 7.1 AVERAGE RISK 7.1 - 11.0 MODERATE RISK >11.0 HIGH RISK Performed By: #### L IPID, CMP, TSH #### [facility] [address] [address] [address] Twin Bernal Cholesterol [Mass/Vol] 216 mg/dL Critically high <=200 [facility] Comment on above: Performed By: #### L IPID, CMP, TSH #### [facility] [address] [address] [address] Twin Bernal Cholesterol in HDL [Mass/Vol] 79 mg/dL Critically high 40-60 [facility] Comment on above: Performed By: #### L IPID, CMP, TSH #### [facility] [address] [address] [address] Twin Bernal Cholesterol in LDL [Mass/Vol] 117.6 mg/dL Normal [facility] Comment on above: Performed By: #### L IPID, CMP, TSH #### [facility] [address] [address] [address] Twin Bernal Cholesterol.total/Chol esterol in HDL [Mass ratio] 2.7 {ratio} Normal [facility] Comment on above: Performed By: #### L IPID, CMP, TSH #### [facility] [address] [address] [address] Twin Bernal HDL NORMAL > or = 60 mg/dl - LO W CARDIOVASCULAR RISK <40 mg/dl - HIGH CARDIOVASCULAR RISK Normal [facility] Comment on above: Performed By: #### L IPID, CMP, TSH #### [facility] [address] [place] [address] Dr. Twin Bernal LDL CALC NORMAL SEE BELOW Normal [facility] Comment on above: Result Comment: <100 mg/dl OPTIMAL 100 - 129 mg/dl NEAR OR ABOVE OPTIMAL 130 - 159 mg/dl BORDERLINE HIGH 160 - 189 mg/dl HIGH >190 mg/dl VERY HIGH Performed By: #### L IPID, CMP, TSH #### [facility] [address] [place] [address] Dr. Twin Bernal Triglyceride [Mass/Vol] 97 mg/dL Normal <=150 [facility] Comment on above: Performed By: #### L IPID, CMP, TSH #### [facility] [address] [address] [address] Twin Bernal VLDL CALC 19.4 mg/dL Normal [facility] Comment on above: Performed By: #### L IPID, CMP, TSH #### [facility] [address] [place] [address] Dr. Twin Bernal MICROALB CREAT RATIO RANDOMo n 08-27-2022 mALB 1.0 mg/L Normal <=30.0 [facility] Comment on above: Performed By: #### M CRR #### [facility] [address] [place] [address] Dr. Twin LAY CR RATIO 6.8 mg/g Normal 0.0-29.9 [facility] Comment on above: Performed By: #### M CRR #### [facility] [address] [place] [address] Dr. Twin Bernal MALB CR RATIO RANGE SEE BELOW Normal [facility] Comment on above: Result Comment: NO M ICROALBUMINURIA 0-29 MG/G CLINICAL MICROALBUMINURIA 30-300 MG/G MACROALBUMINURIA >300 MG/G Performed By: #### M CRR #### [facility] [address] [place] [address] Dr. Twin Bernal URINE CREAT 148.12 mg/dL Normal 20.00-300.0 0 [facility] Comment on above: Performed By: #### M CRR #### [facility] [address] [place] [address] Dr. Twin Bernal PROF 14(COMP METB)on 08-27- 022 Albumin [Mass/Vol] 3.5 g/dL Normal 3.4-5.0 [facility] Comment on above: Performed By: #### L IPID, CMP, TSH #### [facility] [address] [place] [address] Dr. Twin Bernal Albumin/Globulin [Mass ratio] 1.0 {ratio} Normal [facility] Comment on above: Performed By: #### L IPID, CMP, TSH #### [facility] [address] [address] [address] Twin Bernal ALP [Catalytic activity/Vol] 92 U/L Normal 46-116 [facility] Comment on above: Performed By: #### L IPID, CMP, TSH #### [facility] [address] [address] [address] Twin Bernal ALT [Catalytic activity/Vol] 23 U/L Normal 14-59 [facility] Comment on above: Performed By: #### L IPID, CMP, TSH #### [facility] [address] [place] [address] Dr. Twin Bernal Anion gap [Moles/Vol] 9.2 mmol/L Normal [facility] Comment on above: Performed By: #### L IPID, CMP, TSH #### [facility] [address] [place] [address] Dr. Twin Bernal AST [Catalytic activity/Vol] 9 U/L Critically low 15-37 [facility] Comment on above: Performed By: #### L IPID, CMP, TSH #### [facility] [address] [place] [address] Dr. Twin Bernal Bilirubin [Mass/Vol] 0.3 mg/dL Normal 0.2-1.0 [facility] Comment on above: Performed By: #### L IPID, CMP, TSH #### [facility] [address] [place] [address] Dr. Twin Bernal Calcium [Mass/Vol] 9.0 mg/dL Normal 8.5-10.1 [facility] Comment on above: Performed By: #### L IPID, CMP, TSH #### [facility] [address] [address] [address] Twin Bernal Chloride [Moles/Vol] 100 mmol/L Normal 98-107 [facility] Comment on above: Performed By: #### L IPID, CMP, TSH #### [facility] [address] [address] [address] Twin Bernal CO2 [Moles/Vol] 30.9 mmol/L Normal 21.0-32.0 [facility] Comment on above: Performed By: #### L IPID, CMP, TSH #### [facility] [address] [address] [address] Twin Bernal Creatinine [Mass/Vol] 0.66 mg/dL Normal 0.55-1.02 [facility] Comment on above: Performed By: #### L IPID, CMP, TSH #### [facility] [address] [address] [address] Twin Bernal EGFR-AF PAKISTANI >60 Normal >=60 [facility] Comment on above: Performed By: #### L IPID, CMP, TSH #### [facility] [address] [place] [address] Dr. Twin Bernal EGFR-NON AF PAKISTANI >60 Normal >=60 [facility] Comment on above: Performed By: #### L IPID, CMP, TSH #### [facility] [address] [address] [address] Twin Bernal Globulin (S) [Mass/Vol] 3.6 g/dL Normal [facility] Comment on above: Performed By: #### L IPID, CMP, TSH #### [facility] [address] [address] [address] Twin Bernal Glucose [Mass/Vol] 241 mg/dL Critically high 74-106 [facility] Comment on above: Performed By: #### L IPID, CMP, TSH #### [facility] [address] [address] [address] Twin Bernal Potassium [Moles/Vol] 4.1 mmol/L Normal 3.5-5.1 [facility] Comment on above: Performed By: #### L IPID, CMP, TSH #### [facility] [address] [address] [address] Twin Bernal Protein [Mass/Vol] 7.1 g/dL Normal 6.4-8.2 [facility] Comment on above: Performed By: #### L IPID, CMP, TSH #### [facility] [address] [address] [address] Twin Bernal Sodium [Moles/Vol] 136 mmol/L Normal 136-145 [facility] Comment on above: Performed By: #### L IPID, CMP, TSH #### [facility] [address] [address] [address] Twin Bernal Urea nitrogen [Mass/Vol] 19.0 mg/dL Critically high 7.0-18.0 [facility] Comment on above: Performed By: #### L IPID, CMP, TSH #### [facility] [address] [address] [address] Twin Bernal Urea nitrogen/Creatinine [Mass ratio] 28.8 mg/mg Normal [facility] Comment on above: Performed By: #### L IPID, CMP, TSH #### [facility] [address] [address] [address] Twin Bernal TSHon 08-27-2022 TSH 1.202 uIU/mL Normal 0.358-3.740 [facility] Comment on above: Performed By: #### L IPID, CMP, TSH #### [facility] [address] [place] [address] Dr. Twin Bernal Vital Signs Date Time Vital Sign Value Performing Clinician Facility 12-26-2023 09:00-0500 Body height 170.18 cm [facility] 12-26-2023 09:00-0500 Body mass index (BMI) [Ratio] 28.66 kg/m2 [facility] 12-26-2023 09:00-0500 Body weight 83.01 kg [facility] 12-26-2023 09:00-0500 Diastolic blood pressure 78 mm[Hg] [facility] 12-26-2023 09:00-0500 Respiratory rate 18 /min [facility] 12-26-2023 09:00-0500 SaO2% (BldA) [Mass fraction] 97 % [facility] 12-26-2023 09:00-0500 Systolic blood pressure 142 mm[Hg] Justo Richard Other [place] [facility] 11-19-2023 15:24-0500 Diastolic blood pressure 81 mm[Hg] II Ranjit Garcia Work Phone: [facility] 11-19-2023 15:24-0500 Heart rate 74 /min II Ranjitayla Garcia Work Phone: [facility] 11-19-2023 15:24-0500 Respiratory rate 12 /min II Ranjit Garcia Work Phone: [facility] 11-19-2023 15:24-0500 SaO2% (BldA) [Mass fraction] 97 % II Ranjit Garcia Work Phone: [facility] 11-19-2023 15:24-0500 Systolic blood pressure 162 mm[Hg] II Ranjitayla Garcia Work Phone: [facility] 11-19-2023 12:00-0500 Body temperature 98.7 [degF] II Ranjitayla Garcia Work Phone: [facility] 11-18-2023 06:22-0500 Body weight 79.9 kg II Ranjitayla Garcia Work Phone: [facility] 11-17-2023 17:14-0500 Body height 170.18 cm II Ranjit Garcia Work Phone: [facility] Encounters Encounter Date Encounter Type Care Provider Facility Start: 12-26-2023 End: 12-26-2023 ambulatory Justo Richard Other [facility] [place] Other Start: 12-26-2023 Office outpatient visit 25 minutes Justo Richard [facility] Start: 12-19-2023 End: 12-19-2023 ambulatory RANJIT GARCIA Not Available Start: 12-01-2023 End: 12-01-2023 ambulatory RANJIT GARCIA Not Available Start: 11-17-2023 End: 11-19-2023 Evaluation and management of inpatient Ranjit Garcia Facility:[facility] Start: 11-17-2023 End: 11-19-2023 Evaluation and management of inpatient II Ranjit Garcia Work Phone: [facility] Work Phone: Start: 11-07-2023 End: 11-07-2023 ambulatory RANJIT GARCIA Not Available Start: 10-25-2023 End: 10-25-2023 ambulatory ROSARIO LARIOS Not Available Start: 08-27-2022 End: 08-28-[address] NONE LISTED REQUEST Facility:[facility]1 Procedures Date Procedure Procedure Detail Performing Clinician Start: 11-18-2023 [facility] Angio II D violeta Garcia Work Phone: Start: 11-18-2023 II Ranjit Garcia Work Phone: Plan of Treatment Date Care Activity Detail Author Start: 11-19-2023 [facility] Start: 11-17-2023 Hospital admission [facility] Start: 11-17-2023 Referral to laceworker [facility] Start: 11-17-2023 [facility] Patient referral [facility] Work Phone: Payers Date Payer Category Payer Medicare [id number] 2023 Self-pay 2022 Medicare [id number] 1961 Medicare [id number] 1960 Unknown [id number] 1960 Unknown [id number] 1960 Unknown [id number] 1960 Unknown [id number] 1960 Unknown [id number] Unknown [id number] 2.16.8 [id number] Social History Date Type Detail Facility Start: 11-18-2023 Tobacco smoking status NHIS Ex-smoker (finding) [facility] Start: 1960 Sex Assigned At Female F [facility] Sex Assigned At Sex Assigned At [facility] [place] Other Goals Date Patient Goal Desired Activity /State Functional Status Date Assessment Result Facility 11-19-2023 Functional status Patient at Baseline [facility] Work Phone: Mental Status Date Assessment Result Facility 11-19-2023 Cognitive function Cognitive Sta tus Patient at Baseline [facility] Work Phone: Clinical Notes 10-28-2023 to 12-26-2023 Note Date & Type Note Facility 12-26-2023 Evaluation note Encounter Date Diagnosis Assessment Notes Nov, HOCM (hypertrophic obstructive cardiomyopathy) (ICD-10 - I42.1) Nov, Essential (primary) hypertension (ICD-10 - I10) Nov, Type 2 diabetes mellitus without complications (ICD-10 - E11.9) Nov, roasterman (current) use of insulin (ICD-10 - Z79.4) Nov, Other # HOCM - Septal wall 2.1 cm. Pt has no history of syncope or VT or family h/o SCD. No evidence of NSVT during hospitalization. No palpitations.# Uncontrolled DM (A1c 10.5% 11/18/23)# Hypertension - Not at goal. PCP: Dr. Garcia (in [place], [place]) Echo 11/18/23 - Asymmetric septal hypertrophy, septal wall 2.1cm, LVOT gradient 30-40 mmHg, hyperdynamic left ventricle, no evidence of MICHELLE, mild MR.LHC 11/18/23 - LM normal, mid LAD 30%, D1 50%, mid-LCX 25%, OM-1 25%, RCA 50%. Nonobstructive CAD. Hyperdynamic, hypertrophic left ventricular function with no wall motion abnormalities, EF 80-85%, LVEDP 10 mmHg. - No evidence or symptoms of LVOT obstruction after BB. Does not meet ICD criteria at this time.- Cont ASA, Lipitor, add Metoprolol at current dose.- Will add chlorthalidone for better BP control. Cont valsartan.- Close f/u in 2 weeks for BP control. Get BMP prior to that visit.- F/u in 6 months regarding HOCM. Watch out for palpitations, syncope, any abnormal rhythms discovered, in order to trigger earlier follow up. Plan for rpt Echo in 1 year. [facility] 12-23-2023 Progress note Author Sami Walker [facility] November 19, 2023 10:16am Note Date/Time November 19, 2023 10:13am [facility] [address] [place] [address] Cardiology Progress Note Signed Patient: Whitney Sauceda MR#: [id number] : 1960 Acct:[id number] Age/Sex: 63 / F Adm Date: 3 Loc: Room: [address] [place] [address] Type: ADM IN Attending Dr: Arjun Estrella DO Copies to: ~ Date of Service: 11/19/2023 Subjective Principal diagnosis: HOCM. NSTEMI. Interval history: Cardiology Update Note - Echo and cardiac catheterization results consistent with HOCM. LVOT gradient at rest 30-40mmHg. Septal wall 2.1 cm. Pt has no history of syncope or VT or family h/o SCD. No evidence of NSVT on telemetry. Events of last 24 hours noted. Patient transferred to ICU care for worsening diabetic ketoacidosis. Patient resting comfortably this morning. No active cardiac complaints. She is tolerating initiation of beta-blockade with metoprolol tartrate 50 mg twice daily without difficulty or hemodynamic aberrancy. Exam Physical Exam Vital Signs: Temp Pulse Resp BP Pulse Ox O2 Del Method 99.3 F H 68 12 154/74 H 98 Room Air 11/19/23 08:00 11/19/23 10:09 11/19/23 10:09 11/19/23 10:09 11/19/23 09:00 11/19/23 10:09 Const General: comfortable and no acute distress Neck Carotids: normal carotid upstroke Resp Effort & Inspection: normal respiratory effort, able to speak in complete sentences and symmetric chest movement Auscultation: clear to auscultation bilaterally Cardio Jugular venous pressure: no JVD Rate: regular rate Rhythm: regular rhythm Heart Sounds: S1 normal, S2 normal and murmur systolic II/ and at the left sternal border Pulses: radial pulses present, femoral pulses present, popliteal pulses present and dorsalis pedis present Objective Labs 11/19/23 04:21 11/19/23 04:21 Labs: Laboratory Results - last 24 hr 11/18/23 11/18/23 11/18/23 11:53 11:53 11:53 Corrected WBC Uncorrected WBC Count RBC Hgb Hct MCV MCH MCHC RDW Plt Count MPV Neut % (Auto) Lymph % (Auto) Cocke % (Auto) Eos % (Auto) Baso % (Auto) Nucleat RBC Rel Count Neut # (Auto) Lymph # (Auto) Cocke # (Auto) Eos # (Auto) Baso # (Auto) APTT Cancelled PHA Creatinine Clear 76.28 Sodium 134 L Potassium 3.2 L Chloride 102 Carbon Dioxide 20.8 L Anion Gap 14.4 BUN 27 H Creatinine 0.75 Est GFR (CKD-EPI) > 60.0 Glucose 148 H POC Glucose POC Glucose Comment Lactic Acid 0.7 Calcium 8.6 Phosphorus Troponin I High Sens Albumin B-Hydroxybutyrate 4.00 H 11/18/23 11/18/23 11/18/23 15:24 15:31 16:31 Corrected WBC Uncorrected WBC Count RBC Hgb Hct MCV MCH MCHC RDW Plt Count MPV Neut % (Auto) Lymph % (Auto) Cocke % (Auto) Eos % (Auto) Baso % (Auto) Nucleat RBC Rel Count Neut # (Auto) Lymph # (Auto) Cocke # (Auto) Eos # (Auto) Baso # (Auto) APTT PHA Creatinine Clear 76.28 Sodium 136 Potassium 3.4 L Chloride 104 Carbon Dioxide 21.4 Anion Gap 14.0 BUN 25 Creatinine 0.71 Est GFR (CKD-EPI) > 60.0 Glucose 108 H POC Glucose 120 91 POC Glucose Comment Lactic Acid Calcium 8.9 Phosphorus 2.3 L Troponin I High Sens Albumin 3.8 B-Hydroxybutyrate 2.60 H 11/18/23 11/18/23 11/18/23 17:35 18:40 18:52 Corrected WBC Uncorrected WBC Count RBC Hgb Hct MCV MCH MCHC RDW Plt Count MPV Neut % (Auto) Lymph % (Auto) Cocke % (Auto) Eos % (Auto) Baso % (Auto) Nucleat RBC Rel Count Neut # (Auto) Lymph # (Auto) Cocke # (Auto) Eos # (Auto) Baso # (Auto) APTT PHA Creatinine Clear 76.28 Sodium 136 Potassium 3.6 Chloride 108 H Carbon Dioxide 21.2 Anion Gap 10.4 BUN 24 Creatinine 0.68 Est GFR (CKD-EPI) > 60.0 Glucose 126 H POC Glucose 85 153 POC Glucose Comment Lactic Acid Calcium 8.3 L Phosphorus 1.6 L Troponin I High Sens Albumin 3.4 L B-Hydroxybutyrate 1.40 H 11/18/23 11/18/23 11/19/23 20:03 21:09 04:21 Corrected WBC Uncorrected WBC Count RBC Hgb Hct MCV MCH MCHC RDW Plt Count MPV Neut % (Auto) Lymph % (Auto) Cocke % (Auto) Eos % (Auto) Baso % (Auto) Nucleat RBC Rel Count Neut # (Auto) Lymph # (Auto) Cocke # (Auto) Eos # (Auto) Baso # (Auto) APTT PHA Creatinine Clear Sodium Potassium Chloride Carbon Dioxide Anion Gap BUN Creatinine Est GFR (CKD-EPI) Glucose POC Glucose 213 167 POC Glucose Comment Glu2: cleaned meter Lactic Acid Calcium Phosphorus Troponin I High Sens 321.4 H* Albumin B-Hydroxybutyrate 11/19/23 11/19/23 11/19/23 04:21 04:21 08:13 Corrected WBC 7.0 Uncorrected WBC Count 7.0 RBC 4.86 Hgb 14.4 Hct 42.3 MCV 87.0 MCH 29.6 MCHC 34.0 RDW 13.5 Plt Count 225 MPV 8.1 Neut % (Auto) 57.9 Lymph % (Auto) 29.1 Cocke % (Auto) 12.0 Eos % (Auto) 0.3 Baso % (Auto) 0.7 Nucleat RBC Rel Count 0.1 Neut # (Auto) 4.0 Lymph # (Auto) 2.0 Cocke # (Auto) 0.8 Eos # (Auto) 0.0 Baso # (Auto) 0.1 APTT PHA Creatinine Clear 76.28 Sodium 139 Potassium 3.9 Chloride 108 H Carbon Dioxide 22.2 Anion Gap 12.7 BUN 15 Creatinine 0.56 L Est GFR (CKD-EPI) > 60.0 Glucose 126 H POC Glucose 133 POC Glucose Comment Lactic Acid Calcium 8.7 Phosphorus Troponin I High Sens Albumin B-Hydroxybutyrate A&P - Cardiology (1) Essential hypertension: Code(s): I10 - Essential (primary) hypertension (2) HOCM (hypertrophic obstructive cardiomyopathy): Assessment/Problem Details: Patient clinically euvolemic and well compensated. Echocardiogram and cardiac catheterization show evidence of hypertrophic cardiomyopathy with mean LVOT gradient approximately 30 mmHg. Patient is stable from a cardiac standpoint Plan: 1. Recommend continue aggressive medical care until resolution of diabetic ketoacidosis 2. Maintain beta-blockade with metoprolol 50 mg twice daily as long as blood pressure tolerates 3. Avoid intravascular volume depletion 4. Cardiology will sign off for now. At time of discharge please make sure patient has clinical follow-up with [facility] within 1 month. 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 1. You were given conscious sedation. Do not operate a vehicle, power tools, make important decisions, or drink alcohol for 24 hours. You might be drowsy or light headed. Return to the Emergency Room if you have trouble breathing, walking or nausea and vomiting. 2. FOR BLEEDING: Apply continuous pressure to the site and call 911. 3. Operative Site Care: Keep the dressing clean and dry. You may change the dressing only if soiled or wet. You may remove the dressing the following morning. You may wash over the puncture site in the shower. If the puncture site is at the wrist no soaking for 3 days. Some bruising or slight swelling may be present. -Signs of infection are redness, warmth, swelling, getting more sore, colored drainage, fever or chills. -Should the arm or leg become cold, numb, blue or white, call the laceworker immediately. 4. ACTIVITY: You are advised to go directly home from the hospital. Restrict your activities for the rest of the day. Resume light or normal activities tomorrow. Do not engage in any activity that will stress the puncture site. Avoid heavy lifting (over 15 lbs.), straining or bending at the catheter site for 48 hours after discharge. If the puncture site is at the wrist do not manipulate wrist for 24 hours and no lifting more than 3 lbs for 3 days. 5. DIET:You may eat your regular diet when you desire. 6. MEDICATIONS: Resume your daily prescription schedule. Prescriptions may be sent with you if needed. Use as directed. When taking pain medications, you may experience dizziness or drowsiness. Do not drink alcohol or drive when taking pain medications. 7. If you should experience episodes of angina e.g. chest discomfort, heaviness, tightness, pressure, burning, with or without radiation to the neck, jaws, arms, or back- Use 1 Nitrostat under your tongue every 5-10 minutes, and up to 3 tablets. If no relief- Call 911 and go to the nearest Emergency Room. -Notify the office for recurrent angina, chest pain or other concerns. You may NOT drive yourself home! Follow the medication instructions provided on your discharge. If the dosages and instructions on this sheet differ from the dosage and instructions on the bottle, follow the instructions on the bottle. [facility] is not responsible for incorrect prescription information provided by the patient during their visit. Do not stop your medications without consulting your health care provider. Please take the list with you to your next doctor's appointment. Monitor blood sugar before meals and at bedtime. Follow-up sliding scale #2 for Novolog adminstration.[facility] Work Phone: 1(754) 589-480912-22-2023 Progress note Author Justo Richard [facility] November 18, 2023 4:16pm Note Date/Time November 18, 2023 4:04pm [facility] [address] [place] [address] Cardiology Progress Note Signed Patient: Whitney Sauceda MR#: [id number] : 1960 Acct:[id number] Age/Sex: 63 / F Adm Date: 3 Loc: Room: 7O6015-9 Type: ADM IN Attending Dr: Arjun Estrella DO Copies to: ~ Date of Service: 11/18/2023 Subjective Principal diagnosis: HOCM. NSTEMI. Interval history: Cardiology Update Note - Echo consistent with HOCM. LVOT gradient at rest 30-40mmHg. Septal wall 2.1 cm. Pt has no history of syncope or VT or family h/o SCD. No evidence of NSVT ontelemetry. - Due to this, will give 1L bolus. Encourage PO intake, avoid dehydration/diuresis. Switch BB to Metoprolol 50mg bid. - If not tolerated could consider Verapamil or Disopyramide in future. - If stable in AM can possibly be discharged. She will f/u with [facility] in 1 month. Exam Physical Exam Vital Signs: Temp Pulse Resp BP Pulse Ox O2 Del Method 97.8 F 78 16 153/77 H 95 Room Air 11/18/23 12:10 11/18/23 15:10 11/18/23 15:10 11/18/23 15:10 11/18/23 15:10 11/18/23 15:10 Objective Labs 11/18/23 05:03 11/18/23 15:24 Labs: Laboratory Results - last 24 hr 11/17/23 11/17/23 11/17/23 17:02 18:05 18:05 Corrected WBC 14.0 H Uncorrected WBC Count 14.0 H RBC 5.45 H Hgb 16.0 H Hct 47.4 H MCV 87.1 MCH 29.4 MCHC 33.8 RDW 13.6 Plt Count 319 MPV 8.6 Neut % (Auto) 82.0 Lymph % (Auto) 10.7 Cocke % (Auto) 6.8 Eos % (Auto) 0.0 Baso % (Auto) 0.5 Nucleat RBC Rel Count 0.1 Neut # (Auto) 11.5 H Lymph # (Auto) 1.5 Cocke # (Auto) 1.0 H Eos # (Auto) 0.0 Baso # (Auto) 0.1 PT 11.3 INR 1.0 APTT 31.5 PHA Creatinine Clear Sodium Potassium Chloride Carbon Dioxide Anion Gap BUN Creatinine Est GFR (CKD-EPI) Glucose POC Glucose POC Glucose Comment Estimat Average Glucose Hemoglobin A1c Lactic Acid Calcium Phosphorus Total Creatine Kinase 165 Troponin I High Sens 958.1 H* Albumin B-Hydroxybutyrate 11/17/23 11/17/23 11/17/23 19:45 21:32 21:32 Corrected WBC Uncorrected WBC Count RBC Hgb Hct MCV MCH MCHC RDW Plt Count MPV Neut % (Auto) Lymph % (Auto) Cocke % (Auto) Eos % (Auto) Baso % (Auto) Nucleat RBC Rel Count Neut # (Auto) Lymph # (Auto) Cocke # (Auto) Eos # (Auto) Baso # (Auto) PT INR APTT PHA Creatinine Clear 74.20 Sodium 135 L Potassium 3.4 L Chloride 103 Carbon Dioxide 11.9 L Anion Gap 23.5 H BUN 30 H Creatinine 0.81 Est GFR (CKD-EPI) > 60.0 Glucose 199 H POC Glucose 143 POC Glucose Comment Estimat Average Glucose Hemoglobin A1c Lactic Acid Calcium 8.8 Phosphorus Total Creatine Kinase 137 Troponin I High Sens 854.3 H* Albumin B-Hydroxybutyrate 11/18/23 11/18/23 11/18/23 02:01 02:05 05:03 Corrected WBC Uncorrected WBC Count RBC Hgb Hct MCV MCH MCHC RDW Plt Count MPV Neut % (Auto) Lymph % (Auto) Cocke % (Auto) Eos % (Auto) Baso % (Auto) Nucleat RBC Rel Count Neut # (Auto) Lymph # (Auto) Cocke # (Auto) Eos # (Auto) Baso # (Auto) PT INR APTT 124.4 H* PHA Creatinine Clear Sodium Potassium Chloride Carbon Dioxide Anion Gap BUN Creatinine Est GFR (CKD-EPI) Glucose POC Glucose 145 POC Glucose Comment Estimat Average Glucose 255 Hemoglobin A1c 10.5 H Lactic Acid Calcium Phosphorus Total Creatine Kinase Troponin I High Sens Albumin B-Hydroxybutyrate 11/18/23 11/18/23 11/18/23 05:03 05:03 06:59 Corrected WBC 11.2 Uncorrected WBC Count 11.2 RBC 4.80 Hgb 13.8 Hct 41.7 MCV 86.9 MCH 28.8 MCHC 33.2 RDW 13.5 Plt Count 284 MPV 8.2 Neut % (Auto) 72.5 Lymph % (Auto) 18.9 Cocke % (Auto) 7.9 Eos % (Auto) 0.1 Baso % (Auto) 0.6 Nucleat RBC Rel Count 0.0 Neut # (Auto) 8.1 H Lymph # (Auto) 2.1 Cocke # (Auto) 0.9 H Eos # (Auto) 0.0 Baso # (Auto) 0.1 PT 11.9 INR 1.0 APTT 45.7 H PHA Creatinine Clear Sodium Potassium Chloride Carbon Dioxide Anion Gap BUN Creatinine Est GFR (CKD-EPI) Glucose POC Glucose 143 POC Glucose Comment Estimat Average Glucose Hemoglobin A1c Lactic Acid Calcium Phosphorus Total Creatine Kinase Troponin I High Sens Albumin B-Hydroxybutyrate 11/18/23 11/18/23 11/18/23 08:01 11:53 11:53 Corrected WBC Uncorrected WBC Count RBC Hgb Hct MCV MCH MCHC RDW Plt Count MPV Neut % (Auto) Lymph % (Auto) Cocke % (Auto) Eos % (Auto) Baso % (Auto) Nucleat RBC Rel Count Neut # (Auto) Lymph # (Auto) Cocke # (Auto) Eos # (Auto) Baso # (Auto) PT INR APTT Cancelled PHA Creatinine Clear 76.28 Sodium 134 L Potassium 3.2 L Chloride 102 Carbon Dioxide 20.8 L Anion Gap 14.4 BUN 27 H Creatinine 0.75 Est GFR (CKD-EPI) > 60.0 Glucose 148 H POC Glucose 144 POC Glucose Comment Glu2: cleaned meter Estimat Average Glucose Hemoglobin A1c Lactic Acid Calcium 8.6 Phosphorus Total Creatine Kinase Troponin I High Sens Albumin B-Hydroxybutyrate 4.00 H 11/18/23 11/18/23 11/18/23 11:53 15:24 15:31 Corrected WBC Uncorrected WBC Count RBC Hgb Hct MCV MCH MCHC RDW Plt Count MPV Neut % (Auto) Lymph % (Auto) Cocke % (Auto) Eos % (Auto) Baso % (Auto) Nucleat RBC Rel Count Neut # (Auto) Lymph # (Auto) Cocke # (Auto) Eos # (Auto) Baso # (Auto) PT INR APTT PHA Creatinine Clear 76.28 Sodium 136 Potassium 3.4 L Chloride 104 Carbon Dioxide 21.4 Anion Gap 14.0 BUN 25 Creatinine 0.71 Est GFR (CKD-EPI) > 60.0 Glucose 108 H POC Glucose 120 POC Glucose Comment Estimat Average Glucose Hemoglobin A1c Lactic Acid 0.7 Calcium 8.9 Phosphorus 2.3 L Total Creatine Kinase Troponin I High Sens Albumin 3.8 B-Hydroxybutyrate 2.60 H A&P - Cardiology (1) Essential hypertension: Code(s): I10 - Essential (primary) hypertension (2) HOCM (hypertrophic obstructive cardiomyopathy): Code(s): I42.1 - Obstructive hypertrophic cardiomyopathy Plan See subjective Documented By: Justo Richard MD 10/29 01/20 1604 Signed By: <Electronically signed by Justo Richard MD> 11/18/23 1616 [facility] Work Phone: 1(133) 326-576212-22-2023 Progress note Author Arjun Estrella [facility] November 18, 2023 2:31pm Note Date/Time November 18, 2023 2:31pm [facility] [address] [place] [address] Hospitalist Progress Note Signed Patient: Whitney Sauceda MR#: [id number] : 1960 Acct:[id number] Age/Sex: 63 / F Adm Date: 3 Loc: Room: [address] [place] [address] Type: ADM IN Attending Dr: Arjun Estrella DO Copies to: ~ Date of Service: 11/18/2023 Subjective Subjective Narrative: Patient seen and examined at bedside earlier this afternoon. Overnight events reviewed. Troponins continue to downtrend. Plan for catheterization earlier today. GI symptoms have improved and she reports an appetite, requests to eat postoperatively. Transfer to intensive care for ketoacidosis. Physical Examination: GENERAL APPEARANCE: Alert, up in bed AAOx3 HEENT: NCAT, mildly dry mucous membranes NECK: Neck soft w/o masses, no JVD CARDIAC: Normal S1 and S2. Holosystolic murmur noted out LUNGS: Clear to auscultation bilaterally. no wheeze/rhonchi/rales ABDOMEN: Positive bowel sounds. Soft, nontender. No guarding or signs of an acute abdomen MUSCULOSKELETAL: No joint erythema or tenderness. EXTREMITIES: No clubbing, cyanosis or edema PSYCHIATRIC: Appropriate mood and affect Assessment and plan: 1. NSTEMI 2 Ketonuria 3. Insulin-dependent type 2 diabetes mellitus 4. Hyperglycemia 5. Ketoacidosis 6. Leukocytosis 7. Elevated blood urea nitrogen 8. Hypokalemia Patient's blood sugars are under relatively good control however she clearly hasdiabetic ketoacidosis perhaps a component of starvation ketoacidosis. Her beta hydroxybutyrate today is now 4.0. Repeat chemistries show improvement of her overall acidosis but at this time I feel she warrants an insulin drip for total resolution of her ketosis. It seems her presenting GI complaints were either a result of DKA or triggered by underlying infection. Has a complex history of dental work requiring antibiotics intermittently including short course 1 month ago. Given the patient's appetite and I have ordered her a full liquid diet, carbohydrate controlled. Hyperdynamic ejection fraction likely a result of her severe symptomatology however will monitor closely for occult infection. Her leukocytosis has down trended. Afebrile. IV fluids and gradual advancement of a carb controlled diet in the intensive care unit this afternoon. D5 lactated Ringer's with potassium chloride 20 mEq at 100 mL an hour. Serial beta hydroxybutyrate levels. Exam Physical Exam Vital Signs: Temp Pulse Resp BP Pulse Ox O2 Del Method 97.8 F 73 16 130/74 95 Room Air 11/18/23 12:10 11/18/23 12:10 11/18/23 12:10 11/18/23 12:10 11/18/23 12:10 11/18/23 12:10 Objective Lab Results 11/18/23 05:03 11/18/23 11:53 Meds Allergies and Active Meds Allergies acetaminophen [From Percocet] Adverse Reaction (Verified 11/17/23 17:23) Rash oxycodone [From Percocet] Adverse Reaction (Verified 11/17/23 17:23) Rash Active Meds: Active Medications Generic Name Dose Route Start Last Admin Trade Name Freq PRN Reason Stop Dose Admin Acetaminophen 1,000 mg 11/17/23 22:52 Acetaminophen 500 Mg Tablet PO 11/16/24 22:51 Q6H PRN Fever or Pain Ascorbic Acid 1,000 mg 11/18/23 09:00 11/18/23 08:21 Ascorbic Acid 500 Mg Tablet PO 11/17/24 08:59 1,000 mg DAILY MARK Administration Aspirin 81 mg 11/18/23 09:00 11/18/23 08:22 Aspirin 81 Mg Tablet.Dr PO 11/17/24 08:59 81 mg DAILY MARK Administration Atorvastatin Calcium 40 mg 11/18/23 21:00 Atorvastatin 40 Mg Tablet PO 11/17/24 20:59 QPM MARK Atropine Sulfate 1 mg 11/18/23 11:24 Atropine Sulfate 1 Mg/10 Ml Syringe IV-PUSH ONCE PRN Symptomatic Bradycardia Citalopram Hydrobromide 20 mg 11/18/23 09:00 11/18/23 08:22 Citalopram 20 Mg Tablet PO 11/17/24 08:59 20 mg QAM MARK Administration Dextrose 0 gm 11/17/23 19:42 Dextrose 50% In Water 25 Gm/50 Ml Syringe IV-PUSH 11/16/24 19:41 PRN PRN Hypoglycemia Gabapentin 100 mg 11/18/23 09:00 11/18/23 08:22 Gabapentin 100 Mg Capsule PO 11/17/24 08:59 100 mg DAILY MARK Administration Glucose 0 gm 11/17/23 19:42 Dextrose 40% Gel 15 Gm Tube PO 11/16/24 19:41 PRN PRN Hypoglycemia Dextrose/Sodium Chloride 1,000 mls @ 100 mls/hr 11/18/23 10:45 11/18/23 12:01 5 % Dextrose-0.45 % Nacl IV 11/17/24 10:44 Not Given .Q10H MARK Sodium Chloride 250 mls @ 999 mls/hr 11/18/23 11:24 0.9% Sodium Chloride 250 Ml IV 11/17/24 11:23 PRN PRN Hypotension Dextrose/Sodium Chloride 1,000 mls @ 80 mls/hr 11/18/23 11:30 11/18/23 12:12 5 % Dextrose-0.45 % Nacl IV 11/18/23 14:29 80 mls/hr .[id number] MARK Administration Potassium Chloride 40 meq/ 520 mls @ 130 mls/hr 11/18/23 13:12 11/18/23 14:01 Sodium Chloride IV 11/18/23 17:11 130 mls/hr ONCE ONE Administration Insulin Human Regular 100 unit in 100 mls @ 0 mls/hr 11/18/23 13:30 Myxredlin IV 11/17/24 13:29 .Q0M REPLACED BY [facility] Protocol Per Protocol Potassium Chloride 20 meq/ 1,010 mls @ 100 mls/hr 11/18/23 13:30 Dextrose/Lactated Ringer's IV 11/17/24 13:29 .Q10H6M REPLACED BY [facility] Insulin Aspart 0 units 11/18/23 02:00 11/18/23 12:01 Insulin Aspart 300 Units/3 Ml Insuln.Pen SUBCUT 11/17/24 01:59 Not Given TID.WM.HS.2A REPLACED BY [facility] Protocol Insulin Glargine 65 units 11/18/23 09:00 11/18/23 08:23 Insulin Glargine 300 Units/3 Ml Insuln.Pen SUBCUT 11/17/24 08:59 65 units DAILY REPLACED BY [facility] Administration Lidocaine HCl 10 ml 11/18/23 11:24 Lidocaine 2% Mdv 50 Ml Vial SUBCUT 11/18/23 23:25 ONCE PRN Sheath Removal Loratadine 10 mg 11/17/23 18:46 Loratadine 10 Mg Tablet PO DAILY PRN Allergy Symptoms Meperidine HCl 25 mg 11/18/23 11:24 Meperidine Pf 25 Mg/Ml Vial IV-PUSH 11/18/23 23:25 ONCE PRN Sheath Removal Metoprolol Succinate 25 mg 11/19/23 09:00 Metoprolol Succinate 25 Mg Tab.Er.24h PO 11/18/24 08:59 DAILY REPLACED BY [facility] Miscellaneous Information 1 each 11/18/23 11:24 Consult To Pharmacy MISCELLANE 11/17/24 11:23 .PHACONSULT PRN ZZ.Pharmacy Consult Protocol Pantoprazole Sodium 40 mg 11/17/23 19:50 11/18/23 08:22 Pantoprazole 40 Mg Vial IV-PUSH 11/16/24 19:49 40 mg BID MARK Administration Potassium Chloride 40 meq 11/18/23 10:41 Potassium Chloride Er 20 Meq Tab.Er.Prt PO STAT PRN Hypokalemia Promethazine HCl 12.5 mg 11/18/23 11:24 Promethazine 25 Mg/Ml Vial IV-PUSH 11/18/23 23:25 ONCE PRN Sheath Removal Sodium Chloride 10 ml 11/17/23 19:46 Sodium Chloride 0.9 % 10 Ml Syringe IV-PUSH 11/16/24 19:45 PRN PRN Flush Sodium Chloride 10 ml 11/17/23 19:46 11/17/23 20:29 Sodium Chloride 0.9 % 10 Ml Vial.Pf INJECTION 11/16/24 19:45 10 ml PRN PRN Administration Dilution Sodium Chloride 0 ml 11/18/23 10:41 Sodium Chloride 0.9 % 10 Ml Syringe IV-PUSH 11/17/24 10:40 PRN PRN Flush Vitamin D 50 mcg 11/18/23 09:00 11/18/23 08:21 Cholecalciferol 25 Mcg (1,000 Units) Tablet PO 11/17/24 08:59 50 mcg DAILY MARK Administration A&P - Hospitalist Assessment/Plan (1) NSTEMI (non-ST elevated myocardial infarction): Plan As above Documented By: Arjun Estrella DO 11/18/23 14 26 Signed By: <Electronically signed by Arjun Estrella DO> 11/18/[address] [place] [address] Ctr Work Phone: 1(520) 625-792412-22-2023 History and physical note Author Arjun Estrella [facility] November 18, 2023 11:48am Note Date/Time November 17, 2023 7:01pm [facility] [address] [place] [address] Hospitalist H&P Signed Patient: Whitney Sauceda MR#: [id number] : 1960 Acct:[id number] Age/Sex: 63 / F Adm Date: 3 Loc: Room: [address] [place] [address] Type: ADM IN Attending Dr: Arjun Estrella DO Copies to: MD Arjun Ba II, DO~ HPI DATE OF EXAMINATION: 11/17/23 CHIEF COMPLAINT: Nausea, vomiting and diarrhea HISTORY OF PRESENT ILLNESS: This patient is a 63-year-old female with history of diabetes and hypertension not seen previously at this facility. She presents from [facility] ER where she presented earlier today with complaints of nausea, vomiting, diarrhea and hyperglycemia. Reportedly 4 days in duration. He accompanying documentation indicates relatively stable vital signs and arrival with only somemild tachycardia 102 and hypertension 152/66. Labs revealed leukocytosis of 16.1 predominantly neutrophilic in origin, polycythemia with an H&H 16.6/48.6%, platelets 349. Chemistries were significant for mild anion gap metabolic acidosis with a bicarbonate of 18.7, likely without potassium anion gap is roughly 17. BUN/creatinine 35/0.96. Glucose 302. High-sensitivity troponin [id number]. Urinalysis shows ketones. Negative acetone level. Chest x-ray showed noacute process. Initially EKG revealed ST depression/T wave inversion within theV1 through V6 leads and inferior to II,III and aVF leads. The patient was transferred to [facility] for further evaluation and cardiology consultation. On arrival to the [facility] floor the patient reports some intermittent chest twinges and palpitations/fluttering sensation in her chest over the past year but these are not significantly increased in symptoms or severity presently. Her chief complaint is primarily the GI issues she presents with. The diarrhea she reported has slowed. As did the nausea and vomiting which was quite severe and eventually led to her bringing up only minimal vomitus. Physical Examination: GENERAL APPEARANCE: Alert, up in bed AAOx3 HEENT: NCAT, mildly dry mucous membranes NECK: Neck soft w/o masses, no JVD CARDIAC: Normal S1 and S2. Holosystolic murmur noted out LUNGS: Clear to auscultation bilaterally. no wheeze/rhonchi/rales ABDOMEN: Positive bowel sounds. Soft, nontender. No guarding or signs of an acute abdomen MUSCULOSKELETAL: No joint erythema or tenderness. EXTREMITIES: No clubbing, cyanosis or edema PSYCHIATRIC: Appropriate mood and affect Assessment and plan: 1. NSTEMI 2 Ketonuria 3. Insulin-dependent type 2 diabetes mellitus 4. Hyperglycemia 5. Anion gap metabolic acidosis 6. Leukocytosis 7. Elevated blood urea nitrogen The patient is exhibiting signs of either a viral gastroenteritis or possibly diabetic ketoacidosis leading to her severe GI symptoms. Stat BMP has been ordered and is still pending. Her hyperglycemia has come under slightly better control with initial bedside reading on arrival in the 140s. Diabetic ketoacidosis needs ruled out. Her troponin is downtrending into the 900s, initially in the 1900s at outside ER. I stated to her that this is encouraging in some regard however I am cautious regarding her cardiac status as the repeat EKG on arrival here shows slightly deeper T wave inversions/ST depressions. Will maintain telemetry. Follow electrolytes. Consult cardiology. Monitor forfurther infectious symptoms. Afebrile presently. Disposition: Given the above acute medical issues and systemically ill appearingpatient at the moment she will need extensive cardiac workup, continuous cardiacmonitoring, risk factor modification further diagnostics and potentially even aninsulin drip pending further evaluation. She is thus admitted as an inpatient stay that will surpass greater than 2 midnights. [facility] Medical History (Updated 11/18/23 @ 10:48 by Justo Richard MD) Diabetes Hyperlipidemia Hypertension Family History Father Hx of CABG Mother Breast cancer Cancer of kidney Brother Brain cancer ALS (amyotrophic lateral sclerosis) Social History Smoking Status: Former smoker Tobacco Type: cigarettes Substance Use Type: None Social History Comments: lives with daughter Meds Medications and Allergies Allergies acetaminophen [From Percocet] Adverse Reaction (Verified 11/17/23 17:23) Rash oxycodone [From Percocet] Adverse Reaction (Verified 11/17/23 17:23) Rash Home Medications amlodipine 5 mg tablet 5 mg PO DAILY 11/17/23 [History Confirmed 11/17/23] ascorbic acid (vitamin C) 1,000 mg chewable tablet 1,000 mg PO DAILY 11/17/23 [History Confirmed 11/17/23] aspirin 81 mg tablet 81 mg PO DAILY 11/17/23 [History Confirmed 11/17/23] cholecalciferol (vitamin D3) 50 mcg (2,000 unit) capsule (Vitamin D3) 50 mcg PO DAILY 11/17/23 [History Confirmed 11/17/23] citalopram 20 mg tablet 20 mg PO QAM 11/17/23 [History Confirmed 11/17/23] dapagliflozin propanediol 10 mg tablet (Farxiga) 10 mg PO DAILY 11/17/23 [History Confirmed 11/17/23] famotidine 20 mg tablet 20 mg PO DAILY 11/17/23 [History Confirmed 11/17/23] gabapentin 100 mg capsule 100 mg PO DAILY 11/17/23 [History Confirmed 11/17/23] glimepiride 4 mg tablet 2 mg PO BID 11/17/23 [History Confirmed 11/17/23] insulin glargine 100 unit/mL (3 mL) subcutaneous pen (Basaglar KwikPen U-100 Insulin) 65 unit subcut DAILY 11/17/23 [History Confirmed 11/17/23] lactobacillus combination no.4 3 billion cell capsule (Probiotic) 3,000 mmu cells PO DAILY 11/17/23 [History Confirmed 11/17/23] loratadine 10 mg disintegrating tablet 10 mg PO DAILY PRN Allergy Symptoms 11/17/23 [History Confirmed 11/17/23] naproxen 500 mg tablet mg 11/17/23 [History] pravastatin 20 mg tablet 20 mg PO QPM 11/17/23 [History Confirmed 11/17/23] sitagliptin phosphate 100 mg tablet (Januvia) 100 mg PO DAILY 11/17/23 [History Confirmed 11/17/23] valsartan 320 mg tablet 320 mg PO DAILY 11/17/23 [History Confirmed 11/17/23] Exam Physical Exam Vital Signs: Temp Pulse Resp BP Pulse Ox O2 Del Method 97.8 F 80 16 167/74 H 99 Room Air 11/17/23 17:14 11/17/23 17:14 11/17/23 17:14 11/17/23 17:14 11/17/23 17:14 11/17/23 17:14 Results Lab Results Labs: Laboratory Last Values Corrected WBC 14.0 X10E3/uL (3.8-11.6) H 11/17/23 18:05 Uncorrected WBC Count 14.0 x10E3/uL (3.8-11.6) H 11/17/23 18:05 RBC 5.45 X10E6/uL (3.60-5.00) H 11/17/23 18:05 Hgb 16.0 g/dL (11.8-15.4) H 11/17/23 18:05 Hct 47.4 % (34.0-46.4) H 11/17/23 18:05 MCV 87.1 fl (80-100) 11/17/23 18:05 MCH 29.4 pg (24.7-34.3) 11/17/23 18:05 MCHC 33.8 g/dL (32.0-35.0) 11/17/23 18:05 RDW 13.6 % (11.9-15.3) 11/17/23 18:05 Plt Count 319 x10E3/uL (150-450) 11/17/23 18:05 MPV 8.6 fl (6.3-10.7) 11/17/23 18:05 Neut % (Auto) 82.0 % (.) 11/17/23 18:05 Lymph % (Auto) 10.7 % (.) 11/17/23 18:05 Cocke % (Auto) 6.8 % (.) 11/17/23 18:05 Eos % (Auto) 0.0 % (.) 11/17/23 18:05 Baso % (Auto) 0.5 % (.) 11/17/23 18:05 Nucleat RBC Rel Count 0.1 /100 WBC (0-0.5) 11/17/23 18:05 Neut # (Auto) 11.5 x10E3/uL (1.8-7.7) H 11/17/23 18:05 Lymph # (Auto) 1.5 x10E3/uL (1.00-4.8) 11/17/23 18:05 Cocke # (Auto) 1.0 x10E3/uL (0.0-0.8) H 11/17/23 18:05 Eos # (Auto) 0.0 x10E3/uL (0.0-0.45) 11/17/23 18:05 Baso # (Auto) 0.1 x10E3/uL (0.0-0.2) 11/17/23 18:05 Total Creatine Kinase 165 U/L (30-223) 11/17/23 17:02 Troponin I High Sens 958.1 pg/mL (0.0-15.0) H* 11/17/23 17:02 Assessment & Plan Assessment/Plan (1) NSTEMI (non-ST elevated myocardial infarction): Plan As above IP vs OBS Justification Based on differential dx, clinical care plan, and risk of adverse events, if untreated, in my clinical judgement this patient requires an acute care setting as: INPATIENT because of an expectation of an over 2 midnight stay. Estimated length of stay (# of days): 3 Documented By: Arjun Estrella DO 11/17/23 18 51 Signed By: <Electronically signed by Arjun Estrella DO> 11/18/23 114[address] [facility] Work Phone: [phone]) 787-466812-22-2023 Consult note Author Usha Strange [facility] November 18, 2023 11:38am Note Date/Time November 18, 2023 11:34am [facility] [address] [place] [address] Cardiology Consult Note Signed Patient: Whitney Sauceda MR#: [id number] : 1960 Acct:[id number] Age/Sex: 63 / F Adm Date: 3 Loc: Room: [address] [place] [address] Type: ADM IN Attending Dr: Arjun Estrella DO Copies to: MD Arjun Ba II, DO W Scott Sheldon, DO~ Cardiology HPI History of Present Illness Consult Date: 11/18/23 Reason for Consult: Non-ST elevation [place] HPI: Ms. Sauceda is a 63 year old female seen in interventional cardiology consultation at the request of Dr. Gerard for further consideration of invasiveassessment and management patient who presents originally to [place] ER with complaints of nausea, vomiting, diarrhea and hyperglycemia, reportedly 4 days induration, had elevated troponins that peaked over 900 at this facility yesterdaywith new Jules lateral ST T wave changes on EKG. She denies chest discomfort There is no prior history of myocardial infarction, revascularization, stroke, thromboembolic or bleeding disorder Risk factors are noted for hypertension and diabetes ROSIO risk score is 4. Plan at this time is proceed with early invasive assessment management by means of cardiac catheterization possible PCI as directed by anatomy [facility] Medical History (Updated 11/18/23 @ 10:48 by Justo Richard MD) Diabetes Hyperlipidemia Hypertension Family History Father Hx of CABG Mother Breast cancer Cancer of kidney Brother Brain cancer ALS (amyotrophic lateral sclerosis) Social History Smoking Status: Former smoker Tobacco Type: cigarettes Substance Use Type: None Social History Comments: lives with daughter Meds Medications and Allergies Allergies acetaminophen [From Percocet] Adverse Reaction (Verified 11/17/23 17:23) Rash oxycodone [From Percocet] Adverse Reaction (Verified 11/17/23 17:23) Rash Home Medications amlodipine 5 mg tablet 5 mg PO DAILY 11/17/23 [History Confirmed 11/17/23] ascorbic acid (vitamin C) 1,000 mg chewable tablet 1,000 mg PO DAILY 11/17/23 [History Confirmed 11/17/23] aspirin 81 mg tablet 81 mg PO DAILY 11/17/23 [History Confirmed 11/17/23] cholecalciferol (vitamin D3) 50 mcg (2,000 unit) capsule (Vitamin D3) 50 mcg PO DAILY 11/17/23 [History Confirmed 11/17/23] citalopram 20 mg tablet 20 mg PO QAM 11/17/23 [History Confirmed 11/17/23] dapagliflozin propanediol 10 mg tablet (Farxiga) 10 mg PO DAILY 11/17/23 [History Confirmed 11/17/23] famotidine 20 mg tablet 20 mg PO DAILY 11/17/23 [History Confirmed 11/17/23] gabapentin 100 mg capsule 100 mg PO DAILY 11/17/23 [History Confirmed 11/17/23] glimepiride 4 mg tablet 2 mg PO BID 11/17/23 [History Confirmed 11/17/23] insulin glargine 100 unit/mL (3 mL) subcutaneous pen (Basaglar KwikPen U-100 Insulin) 65 unit subcut DAILY 11/17/23 [History Confirmed 11/17/23] lactobacillus combination no.4 3 billion cell capsule (Probiotic) 3,000 mmu cells PO DAILY 11/17/23 [History Confirmed 11/17/23] loratadine 10 mg disintegrating tablet 10 mg PO DAILY PRN Allergy Symptoms 11/17/23 [History Confirmed 11/17/23] naproxen 500 mg tablet mg 11/17/23 [History] pravastatin 20 mg tablet 20 mg PO QPM 11/17/23 [History Confirmed 11/17/23] sitagliptin phosphate 100 mg tablet (Januvia) 100 mg PO DAILY 11/17/23 [History Confirmed 11/17/23] valsartan 320 mg tablet 320 mg PO DAILY 11/17/23 [History Confirmed 11/17/23] Exam Physical Exam Vital Signs: Temp Pulse Resp BP Pulse Ox O2 Del Method 97.8 F 79 18 135/79 97 Room Air 11/18/23 08:00 11/18/23 08:00 11/18/23 08:00 11/18/23 08:00 11/18/23 08:00 11/18/23 08:00 Const General: cooperative and comfortable Nutritional Appearance: average body habitus Orientation: alert, awake and oriented x3 HEENT Head: normal to inspection Neck Neck: normal visual inspection Chest Chest palpation & inspection: normal inspection of the chest Resp Effort & Inspection: normal respiratory effort Auscultation: clear to auscultation bilaterally Cardio Palpation: normal PMI Rate: regular rate Rhythm: regular rhythm Heart Sounds: S1 normal and S2 normal Pulses: radial pulses present and femoral pulses present GI Palpation: soft Skin General: no rashes or lesions noted Neuro General: patient alert, patient awake and patient oriented x3 Cognition: normal cognition Speech: speech normal Extrem General: no clubbing, cyanosis or edema ROSIO Risk Score ROSIO Risk Score Predictor Historical: Age > 65 Years Old and 3 or more Risk Factors: FHx,HTN,elevated cholesterol,DM,active smoker Presentation: Increased Cardiac Marker and ST Deviation >/=0.05mV Score Risk Score (0-7): 4 Results: 4 Results Labs 11/18/23 05:03 11/17/23 21:32 Lab results: Cardiac Enzymes 11/17/23 11/17/23 Range/Units 17:02 21:32 Total Creatine Kinase 165 137 (30-223) U/L CBC 11/17/23 11/18/23 Range/Units 18:05 05:03 RBC 5.45 H 4.80 (3.60-5.00) X10E6/uL Hgb 16.0 H 13.8 (11.8-15.4) g/dL Hct 47.4 H 41.7 (34.0-46.4) % Plt Count 319 284 (150-450) x10E3/uL Neut # (Auto) 11.5 H 8.1 H (1.8-7.7) x10E3/uL Lymph # (Auto) 1.5 2.1 (1.00-4.8) x10E3/uL Cocke # (Auto) 1.0 H 0.9 H (0.0-0.8) x10E3/uL Eos # (Auto) 0.0 0.0 (0.0-0.45) x10E3/uL Baso # (Auto) 0.1 0.1 (0.0-0.2) x10E3/uL Comprehensive Metabolic Panel 11/17/23 Range/Units 21:32 Sodium 135 L (136-145) mmol/L Potassium 3.4 L (3.5-5.1) mmol/L Chloride 103 (98-107) mmol/L Carbon Dioxide 11.9 L (21.0-31.0) mmol/L BUN 30 H (7-25) mg/dL Creatinine 0.81 (0.60-1.20) mg/dL Glucose 199 H (70-100) mg/dL Calcium 8.8 (8.6-10.3) mg/dL Intake and Output 11/17/23 11/18/23 11/18/23 23:59 07:59 15:59 Intake Total 480 / 480 360 / 360 Balance 480 / 480 360 / 360 Intake: Oral 480 / 480 360 / 360 Other: # Unmeasured Voids 1 1 # Bowel Movements 0 0 Weight 77.3 kg 79.9 kg Date of Last Bowel Movement 11/16/23 11/16/23 Patient Weight 11/18/23 23:59 Weight 79.9 kg Lab 11/17/23 11/18/23 11/18/23 18:05 02:01 05:03 PT 11.3 11.9 INR 1.0 1.0 APTT 31.5 124.4 H* 45.7 H EKG Interpretations EKG EKG results cardiology: sinus rhythm Blocks, axis, hypertrophy, ST abn Repolarization changes or abnormalities: ST or T wave suggestive of ischemia A&P - Cardiology (1) NSTEMI (non-ST elevated myocardial infarction): Code(s): I21.4 - Non-ST elevation (NSTEMI) myocardial infarction (2) Essential hypertension: Code(s): I10 - Essential (primary) hypertension (3) Hyperglycemia: Code(s): R73.9 - Hyperglycemia, unspecified (4) Diabetes: Qualifiers: Diabetes mellitus type: type 2 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 Code(s): E11.9 - Type 2 diabetes mellitus without complications Plan Cath possible PCI Documented By: Usha Strange DO 11/18/23 1132 Signed By: <Electronically signed by Usha Strange DO> 11/18/23 1138 [facility] Work Phone: [phone] 173-980412-22-2023 Consult note Author Justo Richard [facility] November 18, 2023 10:49am Note Date/Time November 18, 2023 10:49am [facility] [address] [place] [address] Cardiology Consult Note Signed Patient: Whitney Sauceda MR#: [id number] : 1960 Acct:[id number] Age/Sex: 63 / F Adm Date: 3 Loc: Room: [address] [place] [address] Type: ADM IN Attending Dr: Arjun Estrella DO Copies to: MD Justo Ba II, MD Michael R. Frings, DO~ Cardiology HPI History of Present Illness Consult Date: 11/18/23 Reason for Consult: NSTEMI HPI: Ms. Sauceda is a 63 year old female with a past medical below who presented to [place] ER on 11/17/2023 with complaints of nausea, vomiting and weakness, ongoing for 3 days. She believed it to be a stomach bug but had continual symptoms, mildly worse with exertion. She denies any specific chest pain or pressure, but does note that once when lying down experience palpitations. She denies any shortness of breath, dyspnea on exertion, orthopnea, leg swelling, lightheadedness or syncope. At the ER she was, hemodynamically stable, and found to have T wave inversions in the anterior precordial leads, and elevated troponin that peaked at 1985. She was thus transferred [place] [facility] [place]. On admission, blood pressure 130 over 70s, heart rate 70s. Normal respiratory rate and saturations. CBC grossly normal, hemoglobin 13.8. BMP significant formild hypokalemia, metabolic acidosis, and hyperglycemia. [place] CXR - No acute process. [place] EKG - ST depression/T wave inversion within the V1 through V6 leads and inferior to II,III and aVF leads. PMH: Diabetes (moderate control, last A1c by patient 9%), hypertension. Review of Systems Review of Systems Review of systems: ROS: Reports nausea, vomiting and diarrhea now resolved. Patient denies fevers, chest pain, cough, SOB, palpitatoins, headache, vision changes, or skin rash. [facility] Medical History (Updated 11/18/23 @ 10:48 by Justo Richard MD) Diabetes Hyperlipidemia Hypertension Family History Father Hx of CABG Mother Breast cancer Cancer of kidney Brother Brain cancer ALS (amyotrophic lateral sclerosis) Social History Smoking Status: Former smoker Tobacco Type: cigarettes Substance Use Type: None Social History Comments: lives with daughter Meds Medications and Allergies Allergies acetaminophen [From Percocet] Adverse Reaction (Verified 11/17/23 17:23) Rash oxycodone [From Percocet] Adverse Reaction (Verified 11/17/23 17:23) Rash Home Medications amlodipine 5 mg tablet 5 mg PO DAILY 11/17/23 [History Confirmed 11/17/23] ascorbic acid (vitamin C) 1,000 mg chewable tablet 1,000 mg PO DAILY 11/17/23 [History Confirmed 11/17/23] aspirin 81 mg tablet 81 mg PO DAILY 11/17/23 [History Confirmed 11/17/23] cholecalciferol (vitamin D3) 50 mcg (2,000 unit) capsule (Vitamin D3) 50 mcg PO DAILY 11/17/23 [History Confirmed 11/17/23] citalopram 20 mg tablet 20 mg PO QAM 11/17/23 [History Confirmed 11/17/23] dapagliflozin propanediol 10 mg tablet (Farxiga) 10 mg PO DAILY 11/17/23 [History Confirmed 11/17/23] famotidine 20 mg tablet 20 mg PO DAILY 11/17/23 [History Confirmed 11/17/23] gabapentin 100 mg capsule 100 mg PO DAILY 11/17/23 [History Confirmed 11/17/23] glimepiride 4 mg tablet 2 mg PO BID 11/17/23 [History Confirmed 11/17/23] insulin glargine 100 unit/mL (3 mL) subcutaneous pen (Basaglar KwikPen U-100 Insulin) 65 unit subcut DAILY 11/17/23 [History Confirmed 11/17/23] lactobacillus combination no.4 3 billion cell capsule (Probiotic) 3,000 mmu cells PO DAILY 11/17/23 [History Confirmed 11/17/23] loratadine 10 mg disintegrating tablet 10 mg PO DAILY PRN Allergy Symptoms 11/17/23 [History Confirmed 11/17/23] naproxen 500 mg tablet mg 11/17/23 [History] pravastatin 20 mg tablet 20 mg PO QPM 11/17/23 [History Confirmed 11/17/23] sitagliptin phosphate 100 mg tablet (Januvia) 100 mg PO DAILY 11/17/23 [History Confirmed 11/17/23] valsartan 320 mg tablet 320 mg PO DAILY 11/17/23 [History Confirmed 11/17/23] Exam Physical Exam Vital Signs: Temp Pulse Resp BP Pulse Ox O2 Del Method 97.8 F 79 18 135/79 97 Room Air 11/18/23 08:00 11/18/23 08:00 11/18/23 08:00 11/18/23 08:00 11/18/23 08:00 11/18/23 08:00 Narrative: Physical Exam: General: NAD, A&Ox3, Cooperative HEENT: NC/AT, PERRLA, EOMI, Neck supple Lungs: Good air entry; No crackles/rhonchi/wheezes Heart: S1S2 normal, Regular rhythm, No murmurs/rubs/gallop, No JVD Extremities: No edema; Good radial pulse 2+ Abdomen: Soft, non-tender, non-distended, no masses, BS+ Skin: Warm, Dry, No gross lesions Neuro: CN grossly intact, No focal motor or sensory deficits Psych: Normal mood & affect Results Labs 11/18/23 05:03 11/17/23 21:32 Lab results: Cardiac Enzymes 11/17/23 11/17/23 Range/Units 17:02 21:32 Total Creatine Kinase 165 137 (30-223) U/L CBC 11/17/23 11/18/23 Range/Units 18:05 05:03 RBC 5.45 H 4.80 (3.60-5.00) X10E6/uL Hgb 16.0 H 13.8 (11.8-15.4) g/dL Hct 47.4 H 41.7 (34.0-46.4) % Plt Count 319 284 (150-450) x10E3/uL Neut # (Auto) 11.5 H 8.1 H (1.8-7.7) x10E3/uL Lymph # (Auto) 1.5 2.1 (1.00-4.8) x10E3/uL Cocke # (Auto) 1.0 H 0.9 H (0.0-0.8) x10E3/uL Eos # (Auto) 0.0 0.0 (0.0-0.45) x10E3/uL Baso # (Auto) 0.1 0.1 (0.0-0.2) x10E3/uL Comprehensive Metabolic Panel 11/17/23 Range/Units 21:32 Sodium 135 L (136-145) mmol/L Potassium 3.4 L (3.5-5.1) mmol/L Chloride 103 (98-107) mmol/L Carbon Dioxide 11.9 L (21.0-31.0) mmol/L BUN 30 H (7-25) mg/dL Creatinine 0.81 (0.60-1.20) mg/dL Glucose 199 H (70-100) mg/dL Calcium 8.8 (8.6-10.3) mg/dL Intake and Output 11/17/23 11/18/23 11/18/23 22:59 06:59 14:59 Intake Total 480 / 840 360 / 840 Balance 480 / 840 360 / 840 Intake: Oral 480 / 840 360 / 840 Other: # Unmeasured Voids 1 1 # Bowel Movements 0 0 Weight 77.3 kg 79.9 kg Date of Last Bowel Movement 11/16/23 11/16/23 Lab 11/17/23 11/18/23 11/18/23 18:05 02:01 05:03 PT 11.3 11.9 INR 1.0 1.0 APTT 31.5 124.4 H* 45.7 H A&P - Cardiology (1) NSTEMI (non-ST elevated myocardial infarction): Code(s): I21.4 - Non-ST elevation (NSTEMI) myocardial infarction (2) Essential hypertension: Code(s): I10 - Essential (primary) hypertension (3) Hyperglycemia: Code(s): R73.9 - Hyperglycemia, unspecified (4) Diabetes: Qualifiers: Diabetes mellitus type: type 2 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 No angina. Nausea and vomiting may be related. # Hyperglycemia, ketosis and met acidosis on admission - Doesnt meet strict DKA criteria however [place] is a known trigger for DKA # Diabetes (moderate control, last A1c by patient 9%) # Hypertension. [place] CXR - No acute process. [place] EKG - ST depression/T wave inversion within the V1 through V6 leads and inferior to II,III and aVF leads. - Heparin gtt - Cont ASA, upgrade statin to Lipitor, add Metoprolol. Never had angina, will hold off on long acting nitrates. - Plan for [facility] today with interventional. She is NPO. - Echo pending. Documented By: Justo Richard MD 10/29 Signed By: <Electronically signed by Justo Richard MD> 11/18/231048 [facility] Work Phone: [phone]) 946-381312-22-2023 [facility] History general Narrative - Reported* Type Description Date Medical History IDDM Medical History hypertrophic CM Medical History Hypertention Surgical History cholecystectomy Hospitalization History NSTEMI 10/2023 [place] Other Discharge summary Author Arjun Estrella [facility] November 19, 2023 1:29pm Note Date/Time November 19, 2023 1:29pm [facility] [address] [place] [address] Discharge Summary Signed Patient: Whitney Sauceda MR#: [id number] : 1960 Acct:[id number] Age/Sex: 63 / F Adm Date: 3 Loc: Room: [address] [place] [address]: Arjun Estrella DO Copies to: MD Arjun Ba II, ~ Providers Date of Discharge: 11/19/23 Discharging Provider: Arjun Estrella Primary Care Provider: Ranjit Garcia Consults: 11/17/23 18:51 Consult to Cardiology Routine Discharge Diagnosis Final Diagnosis Final Discharge Diagnosis: 1. Non-ST segment elevation myocardial infarction 2. Diabetic ketoacidosis 3. Hypertrophic cardiomyopathy 4. Systolic heart murmur 5. Hyperglycemia 6. Anion gap metabolic acidosis 7. Chronic kidney disease stage II 8. Insulin-dependent type 2 diabetes mellitus 9. Leukocytosis 10. Hypokalemia Summary Hospital Course Hospital course: This is a very pleasant 63-year-old female who presented to the [place] [facility] on 11/17/2023 and was subsequently transferred here to [facility]. He had severe nausea vomiting and diarrhea for the prior 3 to 4 days leading to her presentation. She had ongoing hyperglycemia. Her EKG showed ST depression/T wave inversions and her initial high-sensitivity troponin was 1987. Started on aspirin and heparin drip. On arrival her troponin levels down trended. Minimal cardiac symptoms. Her labs however showed an anion gap and more concerning for DKA. She was taken for cardiac catheterization next morning revealing mild to moderate CAD not requiring any angioplasty. 50% occlusion of the mid RCA. She hada hyperdynamic ejection fraction estimated to be 80% at that time and hypertrophic left ventricle consistent with hypertrophic cardiomyopathy (HOCM). Suspect hyperdynamic EF and heart transplant due to her presenting GI distress and discomfort. No signs of active infection. Her prior statin was switched toatorvastatin 40 mg daily. She will continue her valsartan previously prescribedon discharge. Newly prescribed 50 mg twice daily metoprolol tartrate was prescribed. Daily aspirin 81 mg to be continued. Follow-up with cardiology as outpatient. I have placed her amlodipine on hold with new beta-ebony therapy Postcatheterization the patient still exhibited anion gap metabolic acidosis andelevated ketones in the blood. Subsequently was transferred to the ICU to treatpresumed diabetic ketoacidosis. Overnight she was transitioned off of an insulin drip as ketoacidosis did resolve relatively quickly. Her hemoglobin A1cwas 10.5% consistent with an estimated average glucose of 255. She has been on multiple oral hypoglycemic agents which I encouraged her to continue. Recently stopped metformin for GI side effects. Renal function generally remains preserved with her GFR indicating stage II CKD. Her regular ARB and SGLT2 inhibitor will provide nephro protection going forward. She has chronically been on 65 units of basal insulin daily. In addition I have added a #2 sliding scale for with meals and evening coverage on discharge. I do long discussion with the patient regarding the importance of aggressive diabetic control going forward and the need to lower her A1c. I explained that this will have many benefits including perhaps resolution of her mild diabetic neuropathy symptoms. States she has been eating small meals as of late and should be monitored for diabetic gastroparesis. She is tolerating a diet quite well now without issue. She will be discharged home to follow-up with her PCP. I have referred her to endocrinology services as well for diabetic management. Physical Examination: GENERAL APPEARANCE: Alert, up in bed AAOx3 HEENT: NCAT, moist mucous membranes NECK: Neck soft w/o masses, no JVD CARDIAC: Normal S1 and S2. Holosystolic murmur noted out LUNGS: Clear to auscultation bilaterally. no wheeze/rhonchi/rales ABDOMEN: Positive bowel sounds. Soft, nontender. No guarding or signs of an acute abdomen MUSCULOSKELETAL: No joint erythema or tenderness. EXTREMITIES: No clubbing, cyanosis or edema PSYCHIATRIC: Appropriate mood and affect 40 minutes were spent coordinating the discharge of this patient. Time Spent with Patient Time spent providing/coordinating discharge services (# min): 40 Surgeries and Procedures Operation Date: 11/18/23 10:15 Actual Procedures p [facility] Angio - W Bret Strange, DO Diagnostic Studies Completed and Pending Studies Pending studies at discharge: 11/17/23 22:00 EKG [ECG 12 lead ECG] Timed 11/18/23 11:25 ECG 12 lead ECG Stat Labs on day of discharge: 11/19/23 12:11: POC Glucose 153 11/19/23 08:13: POC Glucose 133 11/19/23 04:21: PHA Creatinine Clear 76.28, Sodium 139, Potassium 3.9, Chloride 108 H, Carbon Dioxide 22.2, Anion Gap 12.7, BUN 15, Creatinine 0.56 L, Est GFR (CKD- EPI) > 60.0, Glucose 126 H, Calcium 8.7 11/19/23 04:21: Corrected WBC 7.0, Uncorrected WBC Count 7.0, RBC 4.86, Hgb 14.4, Hct 42.3, MCV 87.0, MCH 29.6, MCHC 34.0, RDW 13.5, Plt Count 225, MPV 8.1,Neut % (Auto) 57.9, Lymph % (Auto) 29.1, Cocke % (Auto) 12.0, Eos % (Auto) 0.3, Baso % (Auto) 0.7, Nucleat RBC Rel Count 0.1, Neut # (Auto) 4.0, Lymph # (Auto) 2.0, Cocke # (Auto) 0.8, Eos # (Auto) 0.0, Baso # (Auto) 0.1 11/19/23 04:21: Troponin I High Sens 321.4 H* 11/18/23 21:09: POC Glucose 167 11/18/23 20:03: POC Glucose 213, POC Glucose Comment Glu2: cleaned meter 11/18/23 18:52: PHA Creatinine Clear 76.28, Sodium 136, Potassium 3.6, Chloride 108 H, Carbon Dioxide 21.2, Anion Gap 10.4, BUN 24, Creatinine 0.68, Est GFR (CKD- EPI) > 60.0, Glucose 126 H, Calcium 8.3 L, Phosphorus 1.6 L, Albumin 3.4 L,B- Hydroxybutyrate 1.40 H 11/18/23 18:40: POC Glucose 153 11/18/23 17:35: POC Glucose 85 11/18/23 16:31: POC Glucose 91 11/18/23 15:31: POC Glucose 120 11/18/23 15:24: PHA Creatinine Clear 76.28, Sodium 136, Potassium 3.4 L, Chloride 104, Carbon Dioxide 21.4, Anion Gap 14.0, BUN 25, Creatinine 0.71, Est GFR (CKD- EPI) > 60.0, Glucose 108 H, Calcium 8.9, Phosphorus 2.3 L, Albumin 3.8,B- Hydroxybutyrate 2.60 H 11/18/23 11:53: APTT Cancelled Exam Physical Exam Vital Signs: Temp Pulse Resp BP Pulse Ox O2 Del Method 99.3 F H 68 12 154/74 H 98 Room Air 11/19/23 08:00 11/19/23 10:09 11/19/23 10:09 11/19/23 10:09 11/19/23 09:00 11/19/23 12:00 Discharge Plan Discharge Plan Patient Disposition: Home Additional Instructions: DISCHARGE INSTRUCTIONS FOR CARDIAC [employer]INTENA[employer]CE PHONE NUMBER OF YOUR PHYSICIAN: [phone] PROCEDURE: Heart Cath The following instructions have been prepared to help you care for yourself, or be cared for upon your return home. 1. You were given conscious sedation. Do not operate a vehicle, power tools, make important decisions, or drink alcohol for 24 hours. You might be drowsy orlight headed. Return to the Emergency Room if you have trouble breathing, walking or nausea and vomiting. 2. FOR BLEEDING: Apply continuous pressure to the site and call 911. 3. Operative Site Care: Keep the dressing clean and dry. You may change the dressing only if soiled or wet. You may remove the dressing the following morning. You may wash over the puncture site in the shower. If the puncture site is at the wrist no soaking for 3 days. Some bruising or slight swelling may be present. -Signs of infection are redness, warmth, swelling, getting more sore, colored drainage, fever or chills. -Should the arm or leg become cold, numb, blue or white, call the laceworker immediately. 4. ACTIVITY: You are advised to go directly home from the hospital. Restrict your activities for the rest of the day. Resume light or normal activities tomorrow. Do not engage in any activity that will stress the puncture site. Avoid heavy lifting (over 15 lbs.), straining or bending at the catheter site for 48 hours after discharge. If the puncture site is at the wrist do not manipulate wrist for 24 hours and no lifting more than 3 lbs for 3 days. 5. DIET:You may eat your regular diet when you desire. 6. MEDICATIONS: Resume your daily prescription schedule. Prescriptions may be sent with you if needed. Use as directed. When taking pain medications, you may experience dizziness or drowsiness. Do not drink alcohol or drive when taking pain medications. 7. If you should experience episodes of angina e.g. chest discomfort, heaviness, tightness, pressure, burning, with or without radiation to the neck, jaws, arms, or back- Use 1 Nitrostat under your tongue every 5-10 minutes, and up to 3 tablets. If no relief- Call 911 and go to the nearest Emergency Room. -Notify the office for recurrent angina, chest pain or other concerns. You may NOT drive yourself home! Follow the medication instructions provided on your discharge. If the dosages and instructions on this sheet differ from the dosage and instructions on the bottle, follow the instructions on the bottle. [facility] is not responsible for incorrect prescription information provided by thepatient during their visit. Do not stop your medications without consulting your health care provider. Please take the list with you to your next doctor's appointment. Stand Alone Forms: Insulin Corrective Scale #2 Prescriptions: New metoprolol tartrate 50 mg Tablet 50 mg PO BID 30 Days Qty: 60 0RF insulin aspart U-100 [Novolog FlexPen U-100 Insulin] 100 unit/mL (3 mL) Insulin Pen 1 sliding scale dose subcut ACHS Qty: 15 0RF atorvastatin 40 mg Tablet 40 mg PO QPM 30 Days Qty: 30 0RF Continued valsartan 320 mg Tablet 320 mg PO DAILY aspirin 81 mg Tablet 81 mg PO DAILY gabapentin 100 mg capsule 100 mg PO DAILY citalopram 20 mg tablet 20 mg PO QAM Patient Comments: TAKE 1 TABLET BY MOUTH IN THE MORNING famotidine 20 mg tablet 20 mg PO DAILY Patient Comments: TAKE 1 TABLET BY MOUTH IN THE MORNING insulin glargine [Basaglar KwikPen U-100 Insulin] 100 unit/mL (3 mL) Insulin Pen 65 unit SUBCUT DAILY Farxiga 10 mg Tablet 10 mg PO DAILY Januvia 100 mg Tablet 100 mg PO DAILY loratadine 10 mg tablet,disintegrating 10 mg PO DAILY PRN (Reason: Allergy Symptoms) Patient Comments: TAKE 1 TABLET BY MOUTH IN THE MORNING glimepiride 4 mg tablet 2 mg PO BID Patient Comments: TAKE 1/2 (ONE-HALF) OF A TABLET BY MOUTH IN THE MORNING BEFORE a meal cholecalciferol (vitamin D3) [Vitamin D3] 50 mcg (2,000 unit) Capsule 50 mcg PO DAILY ascorbic acid (vitamin C) 1,000 mg Tablet,Chewable 1,000 mg PO DAILY Probiotic 3 billion cell Capsule 3,000 mmu cells PO DAILY Rx Instructions: administer with a meal Discontinued amlodipine 5 mg tablet 5 mg PO DAILY Patient Comments: TAKE 1 TABLET BY MOUTH IN THE MORNING pravastatin 20 mg tablet 20 mg PO QPM Patient Comments: TAKE 1 TABLET BY MOUTH EVERY NIGHT naproxen 500 mg tablet Patient Comments: TAKE 1 TABLET BY MOUTH TWICE DAILY (IN THE MORNING and IN THE EVENING) WITH MEALS Follow Up: [facility] [Outside] Justo Richard MD [Active Staff] - Documented By: Arjun Estrella DO 11/19/23 13 14 Signed By: <Electronically signed by Arjun Estrella DO> 11/19/23 7938 [facility] Work Phone: Evaluation note* Diagnosis Onset Date Resolution Status Diabetes acute Essential hypertension acute HOCM (hypertrophic obstructive cardiomyopathy) acute Hyperglycemia acute NSTEMI (non-ST elevated myocardial infarction) acute [facility] Work Phone: Summary Purpose Family History No Family History Records Found Relationship Condition Age at Onset Recorded Date/T stephenie father History of coronary artery bypass surgery Unknown Not Specified Malignant neoplasm of breast Unknown Malignant neoplasm of kidney Unknown brother Malignant neoplasm of brain Unknown Amyotrophic lateral sclerosis Unknown Advance Directives No Advanced Directives Records Found Advance Directive Response Recorded Date/ Time Advance Directives No October 2:15pm Chief Complaint and Reason for Visit Chief Complaint N-Stemi Reason for Visit Diabetes Essential hypertension HOCM (hypertrophic obstructive cardiomyopathy) Hyperglycemia NSTEMI (non-ST elevated myocardial infarction) Additional Source Comments INFORMATION SOURCE (unrecogn ized section and content) DATE CREATED AUTHOR 08/31/2022 [facility] DATE CREATED AUTHOR AUTHOR'S ORGANIZ ATION 12/20/2023 [facility] EPIC DATE CREATED AUTHOR AUTHOR'S ORGANIZ ATION 12/31/2023 [facility] Care Teams (unrecognized sec tion and content) Team Status: Active Member Role Status Dates Ranjit Garcia II MD Primary Care Provider Active Team Status: Inactive Member Role Status Dates Ranjit Garcia II MD Primary Care Provider Active Arjun Estrella , Admit Provider, Attending Provider Active Lorena Mcguire RN Other Provider Active Sami Walker MD Other Provider Active Justo Richard MD Other Provider Active Jennifer Lott MD Other Provider Active REASON FOR VISIT (unrecogniz ed section and content) [facility] F/U; 1 MONTH FOR RECORDS PERTAINING TO PATIENTS WHO ARE [...] BE BASED ON THE PRIMARY CLINICAL RECORDS. [employer] [facility]. provides no warranty or guarantee of the accuracy or completeness of information in this document.
[2024-01-03 11:51] LABS: Anion Gap 11.1; BUN Creatinine Ratio 23.2; Calcium 9.5 mg/dL (8.5-10.1); Chloride 98 mmol/L (98-107); Estimated GFR (African America >60 (>=60); Estimated GFR (Non-African Ame >60 (>=60); Glucose 247 mg/dL (74-106); Potassium 4.1 mmol/L (3.5-5.1); Sodium 137 mmol/L (136-145)
== END 2024-01-03 11:00 | disposition home or self-care (01) ==
LOC: LAB 11:02
PROVIDERS: PCP Internal Medicine
DX: I42.1 Obstructive hypertrophic cardiomyopathy (principal)
CPT/HCPCS: 36415; 80048